=== PATIENT | female | born 1995 | race Caucasian/White ===

== ENCOUNTER 2019-10-16 09:09 | Outpatient (REF) | payer BC, SELFPAY ==
--- NOTE | 2019-10-16 08:50 | PAPFT_PTH ---
PATIENT: Anne-Marie Hollins LOC: [facility] U#:[id number] AGE/SX: 23/F ROOM: RE10/16/[address]: Arielle Mariee APRN : 1995 BED: DIS: 10/16/2019 SPEC #: [id number] RECD: 10/16/19 12:40 STATUS: ACE REMario #: [id number] JAZMYN: 10/16/19 08:[address]: Arielle Mariee DEPT: [facility] Cytology RECD BY: Ann-Marie Romano Tissues: 1 - CX/ENDOCX FOR PAP SMEARS Procedures: PAP THIN PREP/UVM Screening Comments: [id number]
== END 2019-10-16 09:29 ==
LOC: LBN 09:09
DX: Z12.4 Encounter for screening for malignant neoplasm of cervix (principal)
CPT/HCPCS: 88142

== ENCOUNTER 2021-01-06 11:50 | Outpatient (REF) | payer BC, SELFPAY ==
--- NOTE | 2021-01-06 08:05 | PAPFT_PTH ---
PATIENT: Anne-Marie Hollins LOC: [facility] U#:[id number] AGE/SX: 25/F ROOM: RE01/06/[address]: Arielle Mariee APRN : 1995 BED: DIS: 01/06/2021 SPEC #: [id number] RECD: 01/06/21 12:59 STATUS: ACE REQ #: [id number] JAZMYN: 01/06/21 08:[address]: Arielle Mariee DEPT: [facility] Cytology RECD BY: Yovana Engel Tissues: 1 - CX/ENDOCX FOR PAP SMEARS Procedures: PAP THIN PREP/UVM Screening Comments: [id number]
== END 2021-01-06 11:51 | disposition home or self-care (01) ==
LOC: LBN 11:50
DX: Z12.4 Encounter for screening for malignant neoplasm of cervix (principal)
CPT/HCPCS: 88142

== ENCOUNTER 2021-03-10 04:20 | Outpatient (CLI) | payer BC, SELFPAY ==
[2021-03-10 09:15] LABS: ALT 32 U/L (14-59); AST 26 U/L (15-37); Albumin 4.1 g/dL (3.4-5.0); Alkaline Phosphatase 43 U/L (46-116); Anion Gap 9.8 mmol/L (3-11); BUN 19 mg/dL (7-18); Bilirubin, Total 0.3 mg/dL (0.2-1.0); CO2 26.2 mmol/L (21.0-32.0); CREATININE 0.8 mg/dL (0.55-1.02); Calcium 8.7 mg/dL (8.5-10.1); Chloride 103 mmol/L (98-107); Glucose 93 mg/dL (74-106); Potassium 4.2 mmol/L (3.5-5.1); Sodium 139 mmol/L (136-145); TSH (W/Ref FT4) 1.18 uIU/mL (0.36-3.74); Total Protein 6.6 g/dL (6.4-8.2)
== END 2021-03-10 04:21 | disposition home or self-care (01) ==
LOC: LBO 04:21
DX: F32.A Depression, unspecified (principal); F41.9 Anxiety disorder, unspecified; R53.83 Other fatigue; Z00.00 Encounter for general adult medical examination without abnormal findings; G47.00 Insomnia, unspecified
CPT/HCPCS: 36415; 80053; 82306; 84443

== ENCOUNTER 2022-12-15 18:24 | Outpatient (REF) | payer BC, SELFPAY | END 2022-12-15 18:25 | disposition home or self-care (01) | LOC: LBN 18:24 | PROVIDERS: PCP Nurse Practitioner Family; Visit Provider Nurse Practitioner Family | DX: N39.0 Urinary tract infection, site not specified (principal) | CPT/HCPCS: 87086 ==

== ENCOUNTER 2022-12-24 12:58 | Emergency (ER) | payer BC, SELFPAY ==
[2022-12-24 13:04] VITALS: BP 115/69; PULSE 98; RESP 16; TEMP 36.9; O2SAT 100
--- OUTSIDE RECORDS SUMMARY | 2022-12-24 13:06 | XMS_ITS | Continuity of Care Document ---
Author Name Unknown Organization [facility] Ambulatory [facility]ics Address [address] [place] [address] Care Team Providers Care Bottom Liner Name Role Phone CECILIO ROSSI APRN Primary Care Physician [phone] [facility]counter [facility] [id number] Date(s): 10/16/22 - 10/16/22 [facility] Ambulatory Clinics [address] [place], [place] [address] Patient Care team information Care Team Personnel Name: CECILIO ROSSI APRN Position: No Access Member Role: Primary Care Physician Address: Address: [address] [place] [address] [place] [address]
--- OUTSIDE RECORDS SUMMARY | 2022-12-24 13:06 | XMS_ITS | Continuity of Care Document ---
Author Name Unknown Organization [facility] Ambulatory Clinics Address [address] [place] [address] Care Team Providers Care Holter Scanning Technician Name Role Phone LONA ROSSI APRN Primary Care Physician Encounter [facility] NBR [id number] Date(s): 12/03/22 - 12/03/22 [facility] Ambulatory Clinics [address] [place] [address]- [place] Encounter Diagnosis Globus sensation(Discharge Diagnosis) - 12/03/22 Vomiting(Discharge Diagnosis) - 12/03/22 Dry heaves(Discharge Diagnosis) - 12/03/22 Discharge Disposition: Home or Self Care Attending Physician: Yenny Damon APRN Referring Physician: LONA ROSSI APRN Allergies, Adverse Reactions, Alerts Substance Reaction Severity Status diphtheria toxoid Mild Active pertussis, acellular Mild Active Assessment and Plan Future Appointments Medications clindamycin 1% topical lotion 1 bernadette, Topical, every night at bedtime, # 60 mL, 0 Refill(s) Start Date: 11/14/22 Status: Ordered Drysol 20% topical solution 1 bernadette, Topical, every day at bedtime, PRN as needed for excessive sweating, # 35 mL, 0 Refill(s) Start Date: 11/14/22 Status: Ordered fluticasone 50 mcg/inh nasal spray 2 sprays, Nasal, every morning, 0 Refill(s) Start Date: 11/14/22 Status: Ordered lamoTRIgine 100 mg oral tablet TAKE ONE AND ONE-HALF TABLETS BY MOUTH EVERY DAY Start Date: 11/14/22 Status: Ordered lamoTRIgine 150 mg oral tablet TAKE 1 TABLET BY MOUTH DAILY Start Date: 11/14/22 Status: Ordered omeprazole 40 mg oral delayed release capsule 40 mg = 1 cap, Oral, Daily, # 90 cap, 0 Refill(s) Start Date: 11/14/22 Status: Ordered SUMAtriptan 100 mg oral tablet 100 mg = 1 tab, Oral, Daily, PRN as needed for migraine headache, may repeat dose after 2 hours up to a maximum of 200 mg in 24 hours, # 18 tab, 0 Refill(s) Start Date: 11/14/22 Status: Ordered tretinoin 0.05% topical cream 1 bernadette, Topical, every day at bedtime, # 20 g, 0 Refill(s) Start Date: 11/14/22 Status: Ordered Problem List Condition Confirmation Course Effective Dates Status Health St atus Informant Acne Confirmed Active ADD - Attention deficit disorder Confirmed Active Allergic rhinitis Confirmed Active Anger Confirmed Active Anxiety depression Confirmed Active Bipolar 2 disorder Confirmed Active Chronic congestion Confirmed Active Chronic cough Confirmed Active Closed fracture metatarsal Confirmed Active Dry heaves Confirmed Active Fatigue Confirmed Active Frequency of urination Confirmed Active Globus sensation Confirmed Active H/O: migraine Confirmed Active Migraine Confirmed Active Nocturia Confirmed Active PND - Postnasal drip Confirmed Active Poor sleep Confirmed Active Social anxiety disorder Confirmed Active Vomiting Confirmed Active Vital Signs Most recent to oldest [Reference Range]: 1 Temperature Temporal Artery [36-38 Deg C ] 36.8 Deg C (12/03/22 3:26 PM) Peripheral Pulse Rate [60-100 bpm] 87 bp m (12/03/22 3:26 PM) Blood Pressure [90-140/60-90 mmHg] 106/5 8mmHg (12/03/22 3:26 PM) Weight 54.70 kg (12/03/22 3:26 PM) Weight Measured (lbs) 120.593 lb (12/03/22 3:26 PM) [place] Body Weight Calculated 52.382 kg (12/03/22 3:26 PM) Height 160 cm (12/03/22 3:26 PM) Height/Length Measured (inches) 62.99 in ch (12/03/22 3:26 PM) BSA Measured 1.56 m2 (12/03/22 3:26 PM) Body Mass Index 21.37 kg/m2 (12/03/22 3:26 PM) Social History Social History Type Response Tobacco Former tobacco user Tobacco Use:. Sex Physician Outpatient Note * Yenny Damon APRN: PERFORM Event Display: Office Clinic Note Physician Authored Date: [id number] DOMITILA PINEDA :1995 Age:27 years Sex:Female Visit Date:12/03/2022 Primary Care Physician: LONA ROSSI APRN Chief Complaint Vomiting and globus sensation History of Present Illness Patient is a 27-year-old female here today at the request of Casie Chakraborty APRN??for vomiting and globus sensation.?? Her primary care provider??is Lona Robert APRN. This is an initial consult. ?? Patient has seen??ENT??and had a flexible sigmoidoscopy that was normal. ??She is been treated for postnasal drip and allergic rhinitis.?? For years patient states she has had the symptoms but they have worsened in the past 6 months and has sought treatment. ??Complains??of dry heaving??to the point of vomiting every morning.?? She has been encouraged to take PPI.?? In the last few days started omeprazole 40 mg every morning.?? Her symptoms occur upon awakening??or when exercise. ??She states she has gained weight recently and she has not been able to exercise due to this discomfort.?? She has a globus sensation.?? She denies nausea, or abdominal pain. ??Denies any constipation, diarrhea,??melena or hematochezia.?? States her appetite??varies. ??Denies any pyrosis or dyspepsia. ??Denies dysphagia. ?? Patient's medical history includes bipolar??disorder type II??and social anxiety disorder. ?? She rarely uses??NSAIDs. ?? EGD:??Denies. ?? Colonoscopy:??Denies. ?? Substance use:??Admits to marijuana use daily for the past 11 years.?? She has??not abstain for 2 to 3 months.?? She feels it helps her vomiting.?? Symptoms did not improve with a hot shower??other than the relief of nasal congestion. ?? Denies any family history of any gastrointestinal cancers or inflammatory bowel disease. Review of Systems Pertinent positives and negatives are discussed in HPI. Physical Exam Vitals & Measurements T:??36.8?C ??(Temporal Artery)?? HR:??87??(Peripheral)?? BP:??106/58?? SpO2:??99%?? HT:??160??cm?? WT:??54.70??kg?? BMI:??21.37?? BSA:??1.56?? General: Well-nourished well-developed??female??in no acute distress. HEENT: Head is normocephalic, trachea midline, and no cervical lymphadenopathy. Respiratory: Respirations are even and unlabored. ??Lungs are clear to auscultation. Cardiovascular: Regular rate and rhythm with S1 and S2. Abdomen: Positive bowel sounds x4 quadrants, no masses, no guarding, no tenderness. ??No hepatosplenomegaly. ??Abdomen is soft. Skin: Warm, dry, and pink. Neurological: Alert and oriented x3, speech is clear and gait is steady. Psychological: Pleasant, calm and cooperative. Assessment/Plan 1.??Globus sensation??F45.8 ENT work-up has been unremarkable including flexible sigmoidoscopy.?? Patient recently started omeprazole 40 mg every morning.?? Suggest she take it??40 mg 30 minutes before evening meal.?? Follow-upin 4 weeks. ??If continues to have??same symptoms that recommend she??consider EGD for further evaluation and treatment. ??She is agreeable with this??plan of care. 2.??Vomiting??R11.10,??Dry heaves??R11.10 As above. Orders: Follow-up Appointment Request [facility], *Est. 12/31/22 +/- 4 days, Future Order, f/u v, globus sesnation., In Approximately, [facility] Gastroenterology Voice recognition software utilized which may result in minor patrol driver error. Problem List/Past Medical History Ongoing Acne ADD - Attention deficit disorder Allergic rhinitis Anger Anxiety depression Bipolar 2 disorder Chronic congestion Chronic cough Closed fracture metatarsal Dry heaves Fatigue Frequency of urination Globus sensation H/O: migraine Migraine Nocturia PND - Postnasal drip Poor sleep Social anxiety disorder Vomiting Historical No qualifying data Medications clindamycin 1% topical lotion, 1 bernadette, Topical, every night at bedtime Drysol 20% topical solution, 1 bernadette, Topical, every night at bedtime, PRN fluticasone 50 mcg/inh nasal spray, 2 sprays, Nasal, every morning lamoTRIgine 100 mg oral tablet lamoTRIgine 150 mg oral tablet omeprazole 40 mg oral delayed release capsule, 40 mg= 1 cap, Oral, Daily SUMAtriptan 100 mg oral tablet, 100 mg= 1 tab, Oral, Daily, PRN tretinoin 0.05% topical cream, 1 bernadette, Topical, every night at bedtime Allergies diphtheria toxoid pertussis, acellular Social History Alcohol Past Electronic Cigarette/Vaping Electronic Cigarette Use: Never. Substance Use Current, Marijuana Tobacco Former tobacco user Tobacco Use:. Family History Cancer: Grandfather (M) and Grandmother (P). Diabetes mellitus: Grandmother (M). Hypertension: Mother and Grandfather (P). Stroke: Grandfather (M) and Grandmother (M). Family Member(s): ?? GPARENT, at age: Unknown. Cause of : Family Member(s): ?? GPARENT, at age: Unknown. Cause of : Family Member(s): ?? GPARENT, at age: Unknown. Cause of : Family Member(s): ?? GPARENT, at age: Unknown. Cause of : Electronically Signed on 12/03/22 04:11 PM Yenny Damon APRN Patient Care team information Care Team Personnel Name: FLO LONA ZHAO Position: No Access Member Role: Primary Care Physician Address: Address: [address] [place] [address] [place] [address]
--- NOTE | 2022-12-24 13:15 | DI.US_ITS ---
Exam(s) US OB 1ST TRIMESTER EXAM: US OB 1ST TRIMESTER CLINICAL HISTORY: ABD pain, vaginal bleeding, r/o ectopic. COMPARISON: No exams were available for comparison TECHNIQUE: Transabdominal Transvaginal first trimester obstetrical ultrasound performed. FINDINGS: Sonographic images demonstrate a single intrauterine gestation. A yolk sac and pole are seen. Sonographically assessed gestational age based upon crown-rump length of 1.8 cm is: 8 weeks 1 day Estimated date of delivery based on this ultrasound is: 04 August 2023 Estimated date of delivery based upon LMP: Unknown. heart rate motion is Dopplered at: 180 bpm. No free fluid identified. Both ovaries appear sonographically normal. Pelvic Measurments Uterus: 8.8 x 4.8 x 6.1 cm Rt Ovary: 3.0 x 1.6 x 2.2 cm Lt Ovary: 3.3 x 2.1 x 2.2 cm IMPRESSION: Single live intrauterine gestation measuring 8 weeks 1 day. No evidence of ectopic . DATA REPOSITORY:
--- NOTE | 2022-12-24 13:46 | W.ED.GENAD ---
Discharge Plan Disposition Patient Disposition: Home Condition: Stable Discharge Details Clinical Impression: Vaginal bleeding in patient at less than 20 weeks gestation Primary Care Provider: Lona Leslie ED Provider: Morris Coleman Home Meds and New Rx's Prescriptions: Continued ibuprofen 800 mg tablet 800 mg PO Q8H PRN (Reason: pain) Qty: 90 3RF cholecalciferol (vitamin D3) 50 mcg (2,000 unit) tablet 50 mcg PO DAILY Qty: 90 0RF fluticasone propionate [Flonase Allergy Relief] 50 mcg/actuation spray,suspension 2 spray intranasal DAILY 30 Days Qty: 16 12RF Rx Instructions: administer into each nostril aluminum chloride 20 % solution 1 applic topical QWEEK PRN (Reason: excessive sweating) 90 Days Qty: 35 2RF sumatriptan succinate 100 mg tablet See Rx Instructions PO .COMPLEX Qty: 14 3RF Rx Instructions: take 1 tab at onset of headache; if no relief, may repeat 1 tab after at least 2 hrs; max = 2 tabs/24 hrs PO omeprazole 40 mg capsule,delayed release(DR/EC) 40 mg PO DAILY 30 Days Qty: 30 1RF lamotrigine 200 mg tablet 200 mg PO DAILY Qty: 90 0RF Discharge Instructions Instructions: Threatened Miscarriage (ED), (ED) Additional Instructions: You were seen in the emergency department for your vaginal bleeding in . It appears your much further along than the 4 weeks you thought you are for. Your urine shows no signs of infection, your hCG hormone is 89,000 indicating greater than 4 weeks , your ultrasound shows an intrauterine and not an ectopic . We discussed at length the possibility of a threatened miscarriage, please return to the ED for any further bleeding or severe abdominal pain especially with fever, nausea, vomiting or other systemic symptoms. The OB service here at the hospital we will follow-up with you for an outpatient appointment. Your ultrasound shows that your fetus is likely 8 weeks and 1 day old. His heart rate was 180 bpm. Please bring up at your first OB appointment your regular use of lamotrigine as this may need to be adjusted for dosing during . Please inquire with the OB about possible use of sumatriptan as well as how often you are taking ibuprofen. Referrals: [facility] [Provider Group] [facility] [Provider Group] Discharge Data Discharge Date/Time-TO BE ENTERED AT DEPARTURE: 12/24/22 15:42 Medical Decision Making Assessment: Patient is a 27-year-old female who believes she is 4 weeks along with her first presenting with acute abdominal pain and vaginal bleeding. She states that she had significant abdominal pain and severe bleeding on 17th and 18th last week and scant bleeding today. Physical exam findings show that her cervical os is scantly open with a very scant trickle of blood leaking out with no signs of large clots or products of conception coming from the cervix. Her UA shows no, she is O+ her blood type and does not need RhoGAM, her quant is 89,000 and there appears to be an intrauterine viable in her uterus that appears much larger than 4 weeks gestational age. I consulted with OB services and they will arrange to see the patient in the very near future, the patient and patient's were comfortable with this disposition, advised that they return to the emergency department for any significant increase in bleeding or abdominal pain or any other emergent concerns. I did sexual assault counselor them at length and try to provide reassurance about possibility of threatened miscarriage. Medical Records Medical records reviewed: Yes I reviewed the patient's medical records. Imaging Data Radiologic Study: Radiologist's impression: EXAM: US OB 1ST TRIMESTER CLINICAL HISTORY: ABD pain, vaginal bleeding, r/o ectopic. COMPARISON: No exams were available for comparison TECHNIQUE: Transabdominal Transvaginal first trimester obstetrical ultrasound performed. FINDINGS: Sonographic images demonstrate a single intrauterine gestation. A yolk sac and pole are seen. Sonographically assessed gestational age based upon crown-rump length of 1.8 cm is: 8 weeks 1 day Estimated date of delivery based on this ultrasound is: 04 August 2023 Estimated date of delivery based upon LMP: Unknown. heart rate motion is Dopplered at: 180 bpm. No free fluid identified. Both ovaries appear sonographically normal. Pelvic Measurments Uterus: 8.8 x 4.8 x 6.1 cm Rt Ovary: 3.0 x 1.6 x 2.2 cm Lt Ovary: 3.3 x 2.1 x 2.2 cm IMPRESSION: Single live intrauterine gestation measuring 8 weeks 1 day. No evidence of ectopic . DATA REPOSITORY: Ordered By: Morris Coleman CC: Dictated By: Deedee Funez M.D. 12/24/221524 <Electronically signed by Deedee Funez M.D. in OV> 12/24/221524 Transcribed By: Deedee Funez 12/24/221524 Lab Data Labs: Laboratory Tests Range/Units 12/24/22 12/24/22 13:35 13:49 Beta HCG, Quant (1-3) mIU/mL 98296 H Urine Color (Yellow) Yellow Urine Clarity (Clear) Clear Urine pH (5-8) 6.0 Ur Specific [place] (1.005-1.025) >= 1.030 H Urine Protein (Negative) mg/dL Negative Urine Ketones (Negative) mg/dL Negative Urine Blood (Negative) Moderate H Urine Nitrite (Negative) Negative Urine Bilirubin (Negative) Negative Urine Urobilinogen (Up to 0.2) mg/dL 0.2 Ur Leukocyte Esterase (Negative) Negative Urine RBC (0-2) HPF 3-5 H Urine WBC (0-5) HPF Negative Ur Epithelial Cells (Negative) HPF Few Urine Crystals (Negative) HPF Negative Urine Bacteria (Negative) HPF Negative Urine Casts (Negative) LPF Negative Urine Mucus (Negative) Moderate Ur Culture Indicated? No Urine Glucose (Negative) mg/dL Negative Patient ABO/Rh O Positive HPI General Date/Time Provider Initiated Documentation: 12/24/22 13:00. HPI Narrative: 27-year-old female, G1PAL0, presents with likely 4-week gestational age with for confirmed positive at-home test. She reported some heavy bleeding last week on the and with about 2 hours of abdominal pain each day of a severe degree. She notices scant bleeding today with some mild right lower suprapubic abdominal pain. She denies nausea/vomiting, denies fevers, denies chest pain, denies stool changes, denies dysuria or lack of urinary output or flank pain. Her and her have been trying to become and her last menstrual period was November 19. She is monogamous and denies possibility of sexually transmitted diseases or new sex partners. Denies foul odor or discharge. Related Data Home Medications Medication Instructions Recorded Confirmed cholecalciferol (vitamin D3) 50 50 mcg PO DAILY #90 tabs 07/01/21 12/22/22 mcg (2,000 unit) tablet ibuprofen 800 mg tablet 800 mg PO Q8H PRN pain #90 tabs 07/01/21 12/22/22 aluminum chloride 20 % topical 1 applic topical QWEEK PRN 04/06/22 12/22/22 solution excessive sweating 90 days #35 mL sumatriptan succinate 100 mg tablet See Rx Instructions PO .COMPLEX 04/06/22 12/22/22 #14 tabs fluticasone propionate 50 2 spray intranasal DAILY 30 days 05/14/22 12/22/22 mcg/actuation nasal #16 grams spray,suspension (Flonase Allergy Relief) omeprazole 40 mg capsule,delayed 40 mg PO DAILY 30 days #30 caps 10/19/22 12/22/22 release lamotrigine 200 mg tablet 200 mg PO DAILY at bedtime #90 11/30/22 12/22/22 tabs Previous Rx's Medication Instructions Recorded cholecalciferol (vitamin D3) 50 50 mcg PO DAILY #90 tabs 07/01/21 mcg (2,000 unit) tablet ibuprofen 800 mg tablet 800 mg PO Q8H PRN pain #90 tabs 07/01/21 aluminum chloride 20 % topical 1 applic topical QWEEK PRN 04/06/22 solution excessive sweating 90 days #35 mL sumatriptan succinate 100 mg tablet See Rx Instructions PO .COMPLEX 04/06/22 #14 tabs fluticasone propionate 50 2 spray intranasal DAILY 30 days 05/14/22 mcg/actuation nasal #16 grams spray,suspension (Flonase Allergy Relief) omeprazole 40 mg capsule,delayed 40 mg PO DAILY 30 days #30 caps 10/19/22 release lamotrigine 200 mg tablet 200 mg PO DAILY at bedtime #90 11/30/22 tabs Allergies Allergy/AdvReac Type Severity Reaction Status Date / Time diphtheria,pertussis Allergy Mild Other (See Verified 12/22/22 18:00 (acellular),te Comment) [From Boostrix Tdap] Pertussis Vaccines Allergy Mild Other (See Verified 12/22/22 18:00 Comment) General Stated Complaint: 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 ALINA: 3 Review of Systems All systems reviewed & are unremarkable except as noted in HPI and below PFSH All Active Problems (Updated 12/24/22 @ 15:22 by ELSA Guerra) Vaginal bleeding in patient at less than 20 weeks gestation (Acute) Vomiting (Acute) Interstitial cystitis (Acute) Dry heaves (Acute) Globus sensation (Acute) Allergic rhinitis (Acute) Excessive anger (Acute) Bipolar 2 disorder (Acute) Postnasal drip (Acute) Chronic congestion of paranasal sinus (Acute) Acne (Acute) Migraine headache without aura (Acute) Social anxiety disorder (Chronic) Migraines (Chronic) Fatigue due to depression (Chronic) Anxiety (Chronic) Poor sleep (Chronic) Secondary to nocturia Elavil 10mg helpful in the past Nocturia (Chronic) 5+ times per night and urge in between Evaluated at [facility] 06/18/2018 Medical History Routine gynecological examination Cough History of chronic cough Spirometry normal 03/08/14, Fracture of fifth metacarpal bone of right hand 03/25/18 H/O attention deficit hyperactivity disorder Treated with Adderall years ago H/O urinary frequency Without infection Family History Mother Hypertension Father No problems noted. Brother No problems noted. Maternal Grandmother , 68 Diabetes Stroke Maternal Grandfather , 82 Cancer Stroke Paternal Grandmother , 80's Cancer Paternal Grandfather , 80 Hypertension Social History Smoking/Tobacco Use Status: Former Tobacco Use Quit Date: 03/01/14 Quit status: has quit before Second Hand Exposure: Yes Smoking risk assessment performed?: Yes Alcohol Intake: former Drug use: Daily Substance use type: marijuana Details: stopped smoking marijuana when patient had positive test. Aden RN 12/24/22 Caregiver/Support person: No Household members: significant other Housing: apartment Communication Needs: None Do you need help understanding health information?: Never Pets and animals: Yes Pets and animals: cat(s) and dog(s) Sexually active: Yes Do you think of yourself as: straight/heterosexual Current gender identity: female What is your relationship status?: living with partner How often do you talk on the phone with friends or family?: three or more times per week How often do you get together with friends or relatives?: never How often do you attend jew or mandaeism services?: decline to answer Do you belong to any clubs or organized social groups?: no Panel score (0-1 are the most socially isolated patients): 2 What type of physical activity do you participate in: walking, weight lifting, running and additional Details: cardio Duration: > 90 minutes/day Frequency: 5-6 times per week Sarah/Jehovah'S Witness: Agnostic Special sarah needs: No Seatbelt use: always Helmet use: No Drive intox or ride w/intox service parts driver: No Do you feel safe at home: Yes Do you feel safe in your relationship?: Yes Exam Const General: cooperative, healthy appearing, comfortable and no acute distress HENMT Head: normal to inspection, normocephalic and atraumatic Resp Effort & Inspection: normal respiratory effort, able to speak in complete sentences and normal respiratory pattern Cardio Rate: regular rate Pulses: radial pulses present GI Inspection: non-distended and no obesity Palpation: soft and no guarding General: bladder normal to palpation and No CVA tenderness Speculum Exam - Vagina: normal appearance of the vagina, not erythematous, no foreign bodies and No tissue present in vagina Speculum Exam - Cervix: cervical os open and abnormal cervical discharge (scant bloody drainage from partially open cervical os) Bimanual Exam- Vagina & Uterus: bladder normal to palpation OB/External & Speculum: no foreign bodies, no tissue noted in vagina and cervical os open Course Vital Signs Vital signs: Vital Signs Temperature 36.9 C 12/24/22 13:04 Pulse 98 H 12/24/22 13:04 Respiratory Rate 16 12/24/22 13:04 Blood Pressure 115/69 12/24/22 13:04 Pulse Oximetry 100 12/24/22 13:04 Temperature 36.9 C 12/24/22 13:04 Pulse 98 H 12/24/22 13:04 Respiratory Rate 16 12/24/22 13:04 Respiratory Effort Normal, Non-Labored 12/24/22 13:08 Blood Pressure 115/69 12/24/22 13:04 Pulse Oximetry 100 12/24/22 13:04
[2022-12-24 13:49] LABS: Bilirubin Negative (Negative); Blood Moderate (Negative); Clarity Clear (Clear); Glucose Negative (Negative); Ketones Negative (Negative); Leukocyte Esterase Negative (Negative); Nitrite Negative (Negative); Specific Gravity >= 1.030 (1.005-1.025); Urobilinogen 0.2 mg/dL (Up to 0.2)
[2022-12-24 13:56] LABS: Bacteria Negative HPF (Negative); C & S Indicated? No; Casts Negative LPF (Negative); Crystals Negative HPF (Negative); Epithelial Cells Few HPF (Negative); Mucus Moderate (Negative); WBC Negative HPF (0-5)
[2022-12-24 14:34] LABS: HCG Quant, Pregnancy 89483 mIU/mL (1-3)
== END 2022-12-24 15:42 | disposition home or self-care (01) ==
LOC: ER 15:22 → RED 15:43 → ER 15:43
PROVIDERS: Emergency Provider Physician Assistant; PCP Nurse Practitioner Family
DX: O46.91 Antepartum hemorrhage, unspecified, first trimester (principal); Z87.891 Personal history of nicotine dependence; Z3A.08 8 weeks gestation of pregnancy
CPT/HCPCS: 86900; 86901; 96360; 99284; 76801; 81003; 81015; 84702; 99283

== ENCOUNTER 2023-01-13 03:02 | Outpatient (CLI) | payer BC, SELFPAY ==
[2023-01-13 13:07] LABS: Panorama Kit Sent via Fed Ex
[2023-01-13 13:19] LABS: Abs Immature Grans 0.06 10^3/uL (0.0-0.06); Absolute Basophil Count 0.06 10^3/uL (0.0-0.2); Absolute Eosinophil Count 0.14 10^3/uL (0.0-0.7); Absolute Lymphocyte Count 2.01 10^3/uL (1.2-3.4); Absolute Monocyte Count 0.59 10^3/uL (0.1-0.8); Basophils % 0.5; Eosinophils % 1.2; HCT 39.2 % (36.0-46.0); HGB 13.6 g/dL (11.2-15.7); Immature Grans % 0.5; Lymphocytes % 17.5; MCH 32.7 pg (27.0-33.0); MCHC 34.7 % (32.0-36.0); MCV 94 fL (80-95); MPV 8.9 fL (8.0-11.0); Monocytes % 5.1; Neutrophils % 75.2; Platelet Count 304 10^3/uL (130-400); RBC 4.16 10^6/uL (3.93-5.22); RDW-SD 45.1 fL; WBC 11.51 10^3/uL (4.4-10.8)
[2023-01-13 13:22] LABS: Absolute Neutrophil Count 8.66 10^3/uL (1.2-6.7)
[2023-01-14 10:20] LABS: Hepatitis B Surface Ag Negative (Negative)
[2023-01-14 10:30] LABS: Varicella IgG Antibody Positive (See Note)
[2023-01-14 10:38] LABS: Rubella IgG Ab (UVM) Negative (See Note)
[2023-01-14 10:59] LABS: HIV-1/2 Ag & Ab Screen Negative (Negative)
[2023-01-14 11:11] LABS: Hepatitis C Ab w Rflx HCV PCR Negative (Negative)
[2023-01-15 09:36] LABS: Toxoplasma Ab, IgG Negative (Negative); Toxoplasma Ab, IgM Negative (Negative); Toxoplasma IgG Value <3 IU/mL
[2023-01-17 15:41] LABS: Syphilis IgG w/Reflex Nonreactive (Nonreactive)
[2023-01-17 17:16] LABS: Specimen WB Whole Blood
[2023-01-27 14:08] LABS: Result Summary NEGATIVE; Specimen WB Whole Blood
== END 2023-01-13 03:03 | disposition home or self-care (01) ==
LOC: LBO 03:02
PROVIDERS: PCP Nurse Practitioner Family; Visit Provider Advanced Practice Midwife
DX: Z34.91 Encounter for supervision of normal pregnancy, unspecified, first trimester
CPT/HCPCS: 36415; 81220; 81222; 81329; 86787; 86803; 86850; 86900; 86901; 87340; 87389; 85025; 86762; 86777; 86778; 86780

== ENCOUNTER 2023-01-13 12:50 | Outpatient (REF) | payer BC, SELFPAY ==
[2023-01-13 15:42] LABS: *AMPHETAMINES SCREEN URINE Negative (Negative); *BARBITURATES SCREEN URINE Negative (Negative); *BENZODIAZEPINES SCREEN URINE Negative (Negative); Cannabinoids THC Negative (Negative); Cocaine Screen,Urine Negative (Negative); METHADONE URINE SCREEN Negative (Negative); OPIATES URINE SCREEN Negative (Negative); Tricyclic Antidepressants Negative (Negative)
[2023-01-14 14:51] LABS: Chlamydia Result Negative (Negative); GC Result Negative (Negative)
[2023-01-18 14:25] LABS: Buprenorphine Negative ng/mL (Cutoff: 5.0); Norbuprenorphine Negative ng/mL (Cutoff: 2.5)
== END 2023-01-13 12:51 | disposition home or self-care (01) ==
LOC: LBN 12:50
PROVIDERS: PCP Nurse Practitioner Family; Visit Provider Advanced Practice Midwife
DX: Z34.91 Encounter for supervision of normal pregnancy, unspecified, first trimester
CPT/HCPCS: 80307; 80348; 87491; 87591; 87086

== ENCOUNTER 2023-03-10 02:56 | Outpatient (CLI) | payer BC, SELFPAY ==
[2023-03-15 14:08] LABS: AFP 60.2 ng/mL; Calculated age at EDD 29 years; Cigarette smoking status non-Smoker; GA used in risk estimate Scan estimate; IVF Pregnancy No; Initial or repeat testing Initial testing; Insulin dependent diabetes No; Maternal Weight 137 lbs; Number of Fetuses 1; Prev Pregnancy w/NTD No; RECOMMENDED FOLLOW UP None.; Results Summary Normal risk
== END 2023-03-10 02:57 | disposition home or self-care (01) ==
LOC: LBO 02:56
PROVIDERS: PCP Nurse Practitioner Family; Visit Provider Advanced Practice Midwife
DX: Z34.92 Encounter for supervision of normal pregnancy, unspecified, second trimester (principal)
CPT/HCPCS: 36415; 82105

== ENCOUNTER 2023-03-19 16:07 | Outpatient (REF) | payer BC, SELFPAY | END 2023-03-19 16:08 | disposition home or self-care (01) | LOC: LBN 16:07 | PROVIDERS: PCP Nurse Practitioner Family; Visit Provider Advanced Practice Midwife | DX: O26.892 Other specified pregnancy related conditions, second trimester (principal); R10.2 Pelvic and perineal pain; N89.8 Other specified noninflammatory disorders of vagina; Z3A.20 20 weeks gestation of pregnancy | CPT/HCPCS: 87086; 87480; 87510; 87660 ==

== ENCOUNTER 2023-05-03 05:00 | Outpatient (CLI) | payer BC, SELFPAY ==
[2023-05-03 09:52] LABS: HCT 37.9 % (36.0-46.0); HGB 12.5 g/dL (11.2-15.7); MCV 100 fL (80-95); MPV 8.8 fL (8.0-11.0); Platelet Count 288 10^3/uL (130-400); RBC 3.79 10^6/uL (3.93-5.22); RDW 12.3 % (11.7-14.6); RDW-SD 45.4 fL; WBC 11.03 10^3/uL (4.4-10.8)
[2023-05-03 10:03] LABS: Glucose,1 Hr (Glucola) 102 mg/dL (80-140)
== END 2023-05-03 05:01 | disposition home or self-care (01) ==
LOC: LBO 05:00
PROVIDERS: PCP Nurse Practitioner Family; Visit Provider Advanced Practice Midwife
DX: Z34.92 Encounter for supervision of normal pregnancy, unspecified, second trimester (principal); Z3A.26 26 weeks gestation of pregnancy
CPT/HCPCS: 36415; 82950; 85027

== ENCOUNTER → 2023-06-02 03:42 | Outpatient (CLI) | payer BC, SELFPAY ==
--- NOTE | 2023-06-02 08:00 | DI.US_ITS ---
Exam(s) US OB PIYUSH WEIGHT EXAM: US OB PIYUSH WEIGHT CLINICAL HISTORY: placental cyst,)43.192. TECHNIQUE: Transabdominal obstetrical ultrasound performed. COMPARISON: US US OB 2-3 TRIMESTER from 03/10/2023 FINDINGS:: Number of fetuses: One. position: Vertex. Placental location: Posterior. Areas of subchorionic fibrin deposition/subchorionic cysts have decre ased in size. No evidence of previa. BIOMETRIC DATA: BPD: 81mm = 32+5 weeks HC: 297mm = 32+ 6 weeks AC: 281mm = 32+1 weeks FL: 60 mm = 31+3 weeks EFW: 1888 Gms = 73% Composite Age: 28 2+2 weeks KRISTINA: [birth year]23 Heart Rate: 135BPM Amniotic fluid index: 11.7 cm. Amount of fluid is visually within normal limits. IMPRESSION: size and weight are within the expected range. DATA REPOSITORY:
== END ==
PROVIDERS: PCP Nurse Practitioner Family; Visit Provider Advanced Practice Midwife
DX: O43.192 Other malformation of placenta, second trimester (principal)
CPT/HCPCS: 76816

== ENCOUNTER → 2023-07-05 04:21 | Outpatient (CLI) | payer BC, SELFPAY ==
--- NOTE | 2023-07-05 07:00 | DI.US_ITS ---
Exam(s) US OB PIYUSH WEIGHT EXAM: US OB PIYUSH WEIGHT CLINICAL HISTORY: PIYUSH,WT, placental cysts,Z34.90. TECHNIQUE: Transabdominal obstetrical ultrasound performed. COMPARISON: US US OB PIYUSH WEIGHT from 06/02/2023 FINDINGS:: Number of fetuses: One. position: Vertex. Placental location: Fundal posterior, grade 2. previously noted cystic areas no are not demonstrated on the current exam. BIOMETRIC DATA: BPD: 89mm = 36+ 0 weeks HC: 324mm = 36+ 5 weeks AC: 320mm = 35+ 6 weeks FL: 65 mm = 35+5 weeks EFW: 2677 Gms = 42% Composite Age: 35+4 weeks KRISTINA: [birth year] 2023 Heart Rate: 157BPM Amniotic fluid index: 14.9 cm. Amount of fluid is visually within normal limits. IMPRESSION: size and weight are within the expected range. Previously noted placental cysts are no longer visualized. DATA REPOSITORY:
== END ==
PROVIDERS: PCP Nurse Practitioner Family; Visit Provider Advanced Practice Midwife
DX: Z34.93 Encounter for supervision of normal pregnancy, unspecified, third trimester (principal); Z3A.35 35 weeks gestation of pregnancy
CPT/HCPCS: 76816

== ENCOUNTER 2023-07-13 15:12 | Outpatient (REF) | payer BC, SELFPAY | END 2023-07-13 15:13 | disposition home or self-care (01) | LOC: LBN 15:12 | PROVIDERS: PCP Nurse Practitioner Family; Visit Provider Advanced Practice Midwife | DX: Z34.93 Encounter for supervision of normal pregnancy, unspecified, third trimester (principal); Z36.85 Encounter for antenatal screening for Streptococcus B; Z3A.36 36 weeks gestation of pregnancy | CPT/HCPCS: 87081 ==

== ENCOUNTER 2023-07-13 15:34 | Outpatient (CLI) | payer BC, SELFPAY ==
[2023-07-13 15:49] VITALS: BP 122/73; PULSE 90; TEMP 36.4
[2023-07-13 16:37] VITALS: BP 122/73; PULSE 90; TEMP 36.4
--- NOTE | 2023-07-13 16:39 | W.OBNST ---
Date of service: 07/13/23 Time of Service: 16:39 NST Evaluation Reason for NST Reasons for Nonstress Test: DECREASED MOVEMENT Gestational Age Gestational Age in Weeks and Days: 36 Weeks and 6Days Test and Monitor Explained Test/Monitor Explained: Test Explained, Monitor Explained and Patient Verbalized Understanding Vital Signs Blood Pressure: 122/73 Pulse: 90 Temperature: 97.5 F NST Information Date on Monitor: 07/13/23 Time on Monitor: 15:50 Date off Monitor: 07/13/23 NST Interventions: PO Hydration NST Evaluation Patient States Movement: Decreased FHR Baseline: 122 Variability: Moderate 6-25 bpm Accelerations: 15x15 Decelerations: None NST Results: Reactive Note Ultrasound Done: N/A. NST Note Note: Anne-Marie was aware of movement and is reassured by NST today. RTO as scheduled. ERICK NST Reviewed and Verified by: Cheryl Portillo
[2023-07-13 16:40] VITALS: BP 122/73; PULSE 90; TEMP 36.4
--- NOTE | 2023-07-14 14:07 | ANES_ITS ---
Date of service: 07/14/23 Time of Service: 13:55 Anesthesia Note Report Anesthesia Note: Pleasant 15 minute phone conversation with patient in regards to her desire for epidural analgesia during labor for her upcoming first child. Patient asked appropriate questions in regards to risks, benefits, and alternatives to labor. Also asked about various motor strength concerns after epidural placement. Patient was informed that all patient's respond differently and no promises could be made if she would be able to walk, reposition easily in bed, etc. Patient also aware of anesthesia coverage on week nights and weekends if the provider is involved in an emergency contractor general engineering. Patient is confident in her desire of intervention during labor and will reach out to the anestehsia department with any additional questions.
== END 2023-07-13 16:57 ==
LOC: BCD 15:36 → OBS 15:42
PROVIDERS: PCP Nurse Practitioner Family; Visit Provider Advanced Practice Midwife
DX: O36.8130 Decreased fetal movements, third trimester, not applicable or unspecified (principal); Z3A.36 36 weeks gestation of pregnancy
CPT/HCPCS: 59025

== ENCOUNTER 2023-07-19 11:23 | Inpatient (IN) | payer BC, SELFPAY ==
[2023-07-19] VITALS (95 sets, daily range): BP systolic 89–132; BP diastolic 49–86; PULSE 0–149; RESP 16; TEMP 36.4–37.3; O2SAT 96–100; BMI 32.9
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
[2023-07-19 10:43] LABS: ROM Plus Positive
[2023-07-19] MEDS: Penicillin G POT. 5,000,000 UNITS in Normal Saline 100 ML 200 UNITS IVPB (10:50)
[2023-07-19] MEDS: Normal Saline 10 ML VIAL IJ (10:50)
[2023-07-19 11:05] LABS: HCT 38.5 % (36.0-46.0); MCH 33.1 pg (27.0-33.0); MCHC 33.8 % (32.0-36.0); MCV 98 fL (80-95); MPV 9.3 fL (8.0-11.0); Platelet Count 257 10^3/uL (130-400); RBC 3.93 10^6/uL (3.93-5.22); RDW 12.9 % (11.7-14.6); RDW-SD 46.1 fL; WBC 16.89 10^3/uL (4.4-10.8)
[2023-07-19 11:30] LABS: ALT 37 U/L (14-59); AST 22 U/L (15-37); Albumin 2.6 g/dL (3.4-5.0); Alkaline Phosphatase 143 U/L (46-116); Anion Gap 10.9 mmol/L (3-11); BUN 8 mg/dL (7-18); Bilirubin, Total 0.3 mg/dL (0.2-1.0); CO2 23.1 mmol/L (21.0-32.0); CREATININE 0.6 mg/dL (0.55-1.02); Calcium 8.8 mg/dL (8.5-10.1); Chloride 104 mmol/L (98-107); Estimated GFR 124.53 (mL/min/1.73m2); Glucose 85 mg/dL (74-106); Potassium 3.8 mmol/L (3.5-5.1); Sodium 138 mmol/L (136-145); Total Protein 6.3 g/dL (6.4-8.2)
--- NOTE | 2023-07-19 12:00 | ANES.PREOP_ITS ---
General Info Date of Service Date Performed: 07/19/23 Height: 5 ft 2 in Weight: 81.647 kg Body Mass Index (BMI): 32.9 Meds Allergies and Home Medications Allergies Allergy/AdvReac Type Severity Reaction Status Date / Time diphtheria,pertussis Allergy Mild Other (See Verified 07/13/23 14:57 (acellular),te Comment) [From Boostrix Tdap] Pertussis Vaccines Allergy Mild Other (See Verified 07/13/23 14:57 Comment) Home Medication Medication Instructions Recorded sumatriptan succinate 100 mg tablet See Rx Instructions PO .COMPLEX 04/06/22 #14 tabs vitamin no.180-ferrous 1 tab PO DAILY #90 tabs 12/25/22 fumarate 27 mg-folic acid 1 mg tablet ( Plus Vitamin-Mineral) aspirin 81 mg tablet,delayed 81 mg PO DAILY #60 tabs 01/13/23 release aluminum chloride 20 % topical 1 applic topical QWEEK PRN 02/01/23 solution excessive sweating 90 days #35 mL lamotrigine 100 mg tablet 100 mg PO DAILY #90 tabs 06/03/23 lamotrigine 200 mg tablet 200 mg PO DAILY at bedtime #90 06/03/23 tabs fluticasone propionate 50 2 spray intranasal DAILY 30 days 06/07/23 mcg/actuation nasal #16 grams spray,suspension (Flonase Allergy Relief) zolpidem 5 mg tablet (Ambien) 5 mg PO QHS #20 tabs 07/13/23 Current Visit Medications: Current Medications Generic Name Dose Route Start Last Admin Trade Name Freq PRN Reason Stop Dose Admin Ringer's Solution 1,000 mls @ 125 mls/hr 07/19/23 10:15 IV INFUSION JARED Penicillin G Potassium 3,000, 50 mls @ 100 mls/hr 07/19/23 15:00 000 units/ Sodium Chloride IVPB Q4H JARED IV Miscellaneous Supplies 1 each 07/19/23 10:15 Iv Access IV DIRECTED JARED Lamotrigine 100 mg 07/20/23 08:30 Lamotrigine 100 Mg Tab PO DAILY JARED Non-Formulary Medication 200 mg 07/20/23 08:30 Lamotrigine PO DAILY JARED Sodium Chloride 0 ml 07/19/23 10:09 Normal Saline Flush 10 Ml Syr IVP PRN PRN Sodium Chloride 0 ml 07/19/23 20:00 Normal Saline Flush 10 Ml Syr IVP BID JARED Sodium Chloride 0 ml 07/19/23 10:09 07/19/23 10:50 Normal Saline 10 Ml Vial IJ 10 ml DIRECTED PRN Administration PFSH Active Problems Active Problems: Problem Status Onset Code Spontaneous onset of labor Group B streptococcal infection during O98.819, B95.1 Increased urinary frequency during O26.899, R35.0 Placental cyst affecting in second trimester O43.192 Rubella non-immune status, antepartum O09.899, Z28.39 Z34.90 Excessive anger R45.4 Bipolar 2 disorder F31.81 Social anxiety disorder F40.10 Anxiety F41.9 Medical History Medical History (Updated 07/19/23 @ 10:20 by Cheryl Jimenez CNM) Upper back pain Globus sensation Chronic congestion of paranasal sinus Acne Migraine headache without aura Nocturia 5+ times per night and urge in between [place] [facility] [place] Poor sleep Secondary to nocturia Elavil 10mg helpful in the past Pelvic cramping in antepartum period Interstitial cystitis Dry heaves Allergic rhinitis Migraines Fatigue due to depression Postnasal drip Cough History of chronic cough Spirometry normal 03/08/14, Fracture of fifth metacarpal bone of right hand 03/25/18 H/O attention deficit hyperactivity disorder Treated with Adderall years ago H/O urinary frequency Without infection Tobacco Smoking/Tobacco Use Status: Former Tobacco Use Passive smoking exposure: Yes Second hand exposure: Yes Alcohol Alcohol Intake: never Substance Use Substance use: Daily Substance use type: marijuana Details: stopped smoking marijuana when patient had positive test. Aden RN 12/24/22 Prental History History 2 1 Para 0 Hx # Term Pregnancies 0 Multiple births 0 Hx # Pregnancies 0 Ectopic pregnancies 0 AB induced 0 Hx Number of Living Children 0 AB spontaneous 0 Vital Signs and Lab Results Vital Signs Most Recent Vital Signs in EMR: Most Recent Vital Signs Temp Pulse Resp BP Pulse Ox 36.6 C 92 H 16 117/67 98 07/19/23 10:35 07/19/23 10:35 07/19/23 10:35 07/19/23 10:35 07/19/23 10:35 Lab Results 07/19/23 10:55 07/19/23 10:55 Blood Type / Crossmatch: 2 No Data to Display Complete Blood Count: 2 White Blood Count 16.89 10^3/uL (4.4-10.8) H 07/19/23 10:55 Red Blood Count 3.93 10^6/uL (3.93-5.22) 07/19/23 10:55 Hemoglobin 13.0 g/dL (11.2-15.7) 07/19/23 10:55 Hematocrit 38.5 % (36.0-46.0) 07/19/23 10:55 Platelet Count 257 10^3/uL (130-400) 07/19/23 10:55 Complete Metabolic Panel: 2 Sodium 138 mmol/L (136-145) 07/19/23 10:55 Potassium 3.8 mmol/L (3.5-5.1) 07/19/23 10:55 Chloride 104 mmol/L (98-107) 07/19/23 10:55 Carbon Dioxide 23.1 mmol/L (21.0-32.0) 07/19/23 10:55 BUN 8 mg/dL (7-18) 07/19/23 10:55 Creatinine 0.6 mg/dL (0.55-1.02) 07/19/23 10:55 Est GFR (CKD-EPI 2020) 124.53 (mL/min/1.73m2) 07/19/23 10:55 Calcium 8.8 mg/dL (8.5-10.1) 07/19/23 10:55 Albumin 2.6 g/dL (3.4-5.0) L 07/19/23 10:55 Glucose 85 mg/dL (74-106) 07/19/23 10:55 Liver Function Panel: 2 Alanine Aminotransferase (ALT/SGPT) 37 U/L (14-59) 07/19/23 10: 55 Aspartate Amino Transf (AST/SGOT) 22 U/L (15-37) 07/19/23 10:55 Coagulation Panel: 2 No Data to Display Cardiac Panel: 2 No Data to Display Arterial Blood Gas: 2 No Data to Display Venous Blood Gas: 2 No Data to Display Pancreas Panel: 2 No Data to Display Thyroid Panel: 2 No Data to Display Infectious Disease: 2 No Data to Display Blood Cultures: 2 No Data to Display Toxicology Panel: 2 No Data to Display Panel: 2 No Data to Display Anesthesia Assessment and Plan Anesthesia History Personal History: No History of Anesthesia Complications Family History: No Family History of Anesthesia Complications Exercise Tolerance Exercise Tolerance: Metabolic Equivalents>4 Cardiac & Pulmonary Exam Cardiac Exam: Normal S1/S2 Heart Sounds Pulmonary Exam: Clear Bilateral Breath Sounds Implantable Cardiac Device Does patient have a Pacemaker or an ICD?: No Airway Exam Known Difficult Airway: No Mallampati Class: 4 Mouth Opening: Narrow (< 3cm) Thyromental Distance: Less than 3 cm Neck Range of Motion: Full ROM Neck Circumference: Normal Teeth Condition: Normal Dentition ASA Classification ASA Score: ASA 2 Emergency Case?: No NPO Status NPO Status: Full Stomach Status Status: Confirmed Anesthesia Plan Resuscitation Status: Full Code Anesthesia Technique: Epidural Anesthesia Airway Planned: Natural Airway Pain Management: Epidural Monitors Used: Standard Monitors Preoperative Comments:: 27 yo female with rupture of membranes early this morning. Currently early in labor. Sig PMHx: bipolar/depression, migraines. former smoker. Discussed risks, benefits of epidural for labor analgesia. She will reach out when she is ready.
--- NOTE | 2023-07-19 12:38 | W.OBNST ---
Date of service: 07/19/23 Time of Service: 12:38 NST Evaluation Reason for NST Reasons for Nonstress Test: OTHER, SEE COMMENT Gestational Age Gestational Age in Weeks and Days: 37 Weeks and 5Days Test and Monitor Explained Test/Monitor Explained: Test Explained, Monitor Explained and Patient Verbalized Understanding Vital Signs Blood Pressure: 117/67 Pulse: 92 Temperature: 97.9 F Urine Results Urine Protein: Negative Urine Ketones: Negative Urine Glucose: Negative Urine Blood: Negative NST Information Date on Monitor: 07/19/23 Time on Monitor: 09:39 Date off Monitor: 07/19/23 Time off Monitor: 10:02 Total Time on Monitor: 23 NST Interventions: Notify Provider Contraction Frequency: 4-5 NST Evaluation Patient States Movement: Present FHR Baseline: 150 Variability: Moderate 6-25 bpm Accelerations: 15x15 Decelerations: None NST Results: Reactive Note Ultrasound Done: N/A. NST Note Note: Anne-Marie reports leaking of fluid since 0200. Now having mild contractions and ROM plus positive. GBS positive, admitted in early labor. NST Reviewed and Verified by: Cheryl Jimenez
[2023-07-19] MEDS: Penicillin G POT. 3,000,000 UNITS in Normal Saline 50 ML 100 UNITS IVPB ×3 (15:00→23:17)
--- NOTE | 2023-07-19 15:06 | W.PM.OBNL1 ---
Date of service: 07/19/23 Time of Service: 15:06 Informed Consent Informed Consent: Augmentation of Labor and Risk,Benefits,Alternatives Discussed (Prolonged rupture of membranes and infection risk. ) Pelvic Exam Dilation: 1.5 Effacement (%): 90 station: -1 Cervix Position: mid Consistency: soft Vaginal Exam Presentation: Vertex Pooling: Positive Contractions Monitor Mode: External Contraction Frequency(min): every 5 min Contraction Duration(sec): 50-60 Intensity: Moderate Fetus A Monitor: External (US) Heart Rate Baseline: 140 Presentation: Vertex Variability: Moderate (6-25 BPM) Categories: Category I FHR Rhythm: Regular Accelerations: 15 X 15 Decelerations: None Amniotic Membrane Status: Ruptured Rupture Method: Spontaneous Amniotic Fluid: Clear Assessment and Plan Assessment and plan (1) Prolonged rupture of membranes: Status: Acute Assessment and plan: I offered labor augmentation at this time with misoprostol or pitocin. Anne-Marie declines and prefers to try more natural means of augmentation. Nipple rolling suggested and she would like to try that. Will consider misoprostol later this evening if no evidence of active labor. Objective Abnormal lab results 07/19/23 Range/Units 10:55 WBC 16.89 H (4.4-10.8) 10^3/uL MCV 98 H (80-95) fL MCH 33.1 H (27.0-33.0) pg Alkaline Phosphatase 143 H (46-116) U/L Total Protein 6.3 L (6.4-8.2) g/dL Albumin 2.6 L (3.4-5.0) g/dL Temp Pulse Resp BP Pulse Ox 97.9 F 87 16 132/71 99 07/19/23 14:10 07/19/23 13:35 07/19/23 12:14 07/19/23 13:35 07/19/23 12:14 Laboratory Results WBC 16.89 10^3/uL (4.4-10.8) H 07/19/23 10:55 RBC 3.93 10^6/uL (3.93-5.22) 07/19/23 10:55 Hgb 13.0 g/dL (11.2-15.7) 07/19/23 10:55 Hct 38.5 % (36.0-46.0) 07/19/23 10:55 MCV 98 fL (80-95) H 07/19/23 10:55 MCH 33.1 pg (27.0-33.0) H 07/19/23 10:55 MCHC 33.8 % (32.0-36.0) 07/19/23 10:55 RDW 12.9 % (11.7-14.6) 07/19/23 10:55 Plt Count 257 10^3/uL (130-400) 07/19/23 10:55 MPV 9.3 fL (8.0-11.0) 07/19/23 10:55 Sodium 138 mmol/L (136-145) 07/19/23 10:55 Potassium 3.8 mmol/L (3.5-5.1) 07/19/23 10:55 Chloride 104 mmol/L (98-107) 07/19/23 10:55 Carbon Dioxide 23.1 mmol/L (21.0-32.0) 07/19/23 10:55 Anion Gap 10.9 mmol/L (3-11) 07/19/23 10:55 BUN 8 mg/dL (7-18) 07/19/23 10:55 Creatinine 0.6 mg/dL (0.55-1.02) 07/19/23 10:55 Est GFR (CKD-EPI 2020) 124.53 (mL/min/1.73m2) 07/19/23 10:55 Glucose 85 mg/dL (74-106) 07/19/23 10:55 Calcium 8.8 mg/dL (8.5-10.1) 07/19/23 10:55 Total Bilirubin 0.3 mg/dL (0.2-1.0) 07/19/23 10:55 AST 22 U/L (15-37) 07/19/23 10:55 ALT 37 U/L (14-59) 07/19/23 10:55 Alkaline Phosphatase 143 U/L (46-116) H 07/19/23 10:55 Total Protein 6.3 g/dL (6.4-8.2) L 07/19/23 10:55 Albumin 2.6 g/dL (3.4-5.0) L 07/19/23 10:55 Membranes Rupture Positive 07/19/23 09:55 ABO/Rh O Positive 07/19/23 10:55 Antibody Screen NEGATIVE 07/19/23 10:55 Subjective Patient Reports: No new Complaints Interval history since last seen: Anne-Marie has been ambulating for comfort and is experiencing irregular contrcations which are strong at times. Results Hemoglobin/Hematocrit: Hgb 13.0 g/dL (11.2-15.7) 07/19/23 10:55 Hct 38.5 % (36.0-46.0) 07/19/23 10:55 Abnormal Lab Findings: Abnormal Labs 07/19/23 10:55 WBC 16.89 H MCV 98 H MCH 33.1 H Alkaline Phosphatase 143 H Total Protein 6.3 L Albumin 2.6 L
[2023-07-19] MEDS: Lactated Ringers 1,000 ML 125 ML IV ×2 (15:07→21:54)
--- NOTE | 2023-07-19 16:57 | W.PM.OBNL1 ---
Date of service: 07/19/23 Time of Service: 16:57 Informed Consent Informed Consent: Augmentation of Labor and Risk,Benefits,Alternatives Discussed (Prolonged rupture of membranes and infection risk. ) Pelvic Exam Dilation: 1.5 Effacement (%): 90 station: -1 Cervix Position: mid Consistency: soft Vaginal Exam Presentation: Cephalic Contractions Monitor Mode: External Contraction Frequency(min): every 3-8 Contraction Duration(sec): 60 Intensity: Moderate Fetus A Monitor: External (US) Heart Rate Baseline: 140 Variability: Moderate (6-25 BPM) Categories: Category I FHR Rhythm: Regular Accelerations: 15 X 15 Decelerations: None Assessment and Plan Assessment and plan (1) Prolonged rupture of membranes: Status: Acute Assessment and plan: Discussed labor augmentation with misoprostol or pitocin. She would like to avoid pitocin if possible. She would like to rest and have an epidural and will consider misoprostol if necessary for labor augmentation. Neal ARLENE was paged for labor analgesia. Risks and benefits of augmentation or expectant management discussed including increased risk of infection and fatigue if labor augmentation is delayed. Dr Trevizo who is the [employer] home demonstrator was notified of patient's status. Objective Abnormal lab results 07/19/23 Range/Units 10:55 WBC 16.89 H (4.4-10.8) 10^3/uL MCV 98 H (80-95) fL MCH 33.1 H (27.0-33.0) pg Alkaline Phosphatase 143 H (46-116) U/L Total Protein 6.3 L (6.4-8.2) g/dL Albumin 2.6 L (3.4-5.0) g/dL Temp Pulse Resp BP Pulse Ox 97.5 F L 85 16 115/76 99 07/19/23 16:00 07/19/23 15:47 07/19/23 12:14 07/19/23 15:47 07/19/23 12:14 Laboratory Results WBC 16.89 10^3/uL (4.4-10.8) H 07/19/23 10:55 RBC 3.93 10^6/uL (3.93-5.22) 07/19/23 10:55 Hgb 13.0 g/dL (11.2-15.7) 07/19/23 10:55 Hct 38.5 % (36.0-46.0) 07/19/23 10:55 MCV 98 fL (80-95) H 07/19/23 10:55 MCH 33.1 pg (27.0-33.0) H 07/19/23 10:55 MCHC 33.8 % (32.0-36.0) 07/19/23 10:55 RDW 12.9 % (11.7-14.6) 07/19/23 10:55 Plt Count 257 10^3/uL (130-400) 07/19/23 10:55 MPV 9.3 fL (8.0-11.0) 07/19/23 10:55 Sodium 138 mmol/L (136-145) 07/19/23 10:55 Potassium 3.8 mmol/L (3.5-5.1) 07/19/23 10:55 Chloride 104 mmol/L (98-107) 07/19/23 10:55 Carbon Dioxide 23.1 mmol/L (21.0-32.0) 07/19/23 10:55 Anion Gap 10.9 mmol/L (3-11) 07/19/23 10:55 BUN 8 mg/dL (7-18) 07/19/23 10:55 Creatinine 0.6 mg/dL (0.55-1.02) 07/19/23 10:55 Est GFR (CKD-EPI 2020) 124.53 (mL/min/1.73m2) 07/19/23 10:55 Glucose 85 mg/dL (74-106) 07/19/23 10:55 Calcium 8.8 mg/dL (8.5-10.1) 07/19/23 10:55 Total Bilirubin 0.3 mg/dL (0.2-1.0) 07/19/23 10:55 AST 22 U/L (15-37) 07/19/23 10:55 ALT 37 U/L (14-59) 07/19/23 10:55 Alkaline Phosphatase 143 U/L (46-116) H 07/19/23 10:55 Total Protein 6.3 g/dL (6.4-8.2) L 07/19/23 10:55 Albumin 2.6 g/dL (3.4-5.0) L 07/19/23 10:55 Membranes Rupture Positive 05/20/24 09:55 ABO/Rh O Positive 07/19/23 10:55 Antibody Screen NEGATIVE 07/19/23 10:55 Subjective Patient Reports: No new Complaints Interval history since last seen: Anne-Marie has been ambulating and trying various positions to bring on stronger contractions including side-lying release. Her contraction became stronger but are now less strong and she is complaining of fatigue. She would like to discuss options. Results Hemoglobin/Hematocrit: Hgb 13.0 g/dL (11.2-15.7) 07/19/23 10:55 Hct 38.5 % (36.0-46.0) 07/19/23 10:55 Abnormal Lab Findings: Abnormal Labs 07/19/23 10:55 WBC 16.89 H MCV 98 H MCH 33.1 H Alkaline Phosphatase 143 H Total Protein 6.3 L Albumin 2.6 L
--- NOTE | 2023-07-19 18:04 | W.ANESNEU ---
Epidural/Spinal Catheter Date Performed: 07/19/23 Procedure Start: 17:27 Procedure Stop: 17:31 Requesting Provider: Cheryl Jimenez Procedure Location: Obstetrics Reason Performed: Labor Epidural Standard Monitors Applied: Blood Pressure and SpO2 Patient Position: Sitting Sedation Given (Indicate Dose Given): No Sedation given Patient Mental Status: Awake Sterility: Hand Hygiene, Surgical Cap, Surgical Mask, Sterile Gloves, Sterile Drape/Sheet and Chlorhexidine Procedure Location: L3-L4 Interspace Epidural Needle: Tuohy 17 Guage Needle Length: 3.5 Inch Needle Approach: Midline Epidural Procedure: MARY to Saline Used Catheter Placed?: Catheter Placed (wire reinforced. ) Test Dose (Indicate Dose Given): 3ml 1.5% Lidocaine with 1:200K Epinephrine Given and Negative Test Dose Loss of Resistance Depth (cm): 6 Catheter depth at skin (cm): 11 Dressing: [place]orbaview Dressing Placed, Mastisol Used and Dressing reinforced with Tape Epidural Provider Bolus (Indicate Dose Given): Total Ropivacaine 0.1% with Fentanyl 2mcg/ml Given from pump. (ml) Dose:: 6 mL Additives (Indicate Dose Given ): None Infusion Medication: No Infusion Started Block Level: N/A Paresthesia: None Ultrasound: Used to guerrero site Number of Attempts (See previous attempts in note section): 1 Procedure Tolerated: Other (light headed after procedure was completed. ) Procedure Outcome: Successful Procedure Comment:: Negative test dose was observed. Shortly there after complained of lightheadedness. BP was cycled with a good MAP. Signs and symptoms of a positive test dose remained absent. a loading dose was performed via the pump in conjunction with an IVF bolus. Right side is slightly more dense of a block. Performed By: Neal Ryder
[2023-07-19] MEDS: Lactated Ringers 250 ML 500 ML IV (18:23)
[2023-07-19] MEDS: FentaNYL/ROPIvacaine 2 mcg/ml and 0.1% 200 ML CADD Cassette EP (18:23)
[2023-07-19] MEDS: Oxytocin/Normal Saline 30 UNIT/500 ML BAG 2 UNITS IV (19:25)
[2023-07-19] MEDS: Acetaminophen 500 MG TAB 1000 MG PO (19:56)
--- NOTE | 2023-07-19 20:25 | W.PM.OBNL1 ---
Date of service: 07/19/23 Time of Service: 21:05 Informed Consent Informed Consent: Augmentation of Labor and Risk,Benefits,Alternatives Discussed (Prolonged rupture of membranes and infection risk. ) Pelvic Exam Comments: SVE deferred Contractions Monitor Mode: External Contraction Frequency(min): every 3 minutes Contraction Duration(sec): 40-50 Intensity: Moderate Fetus A Monitor: External (US) Heart Rate Baseline: 140 Variability: Moderate (6-25 BPM) Categories: Category I FHR Rhythm: Regular Decelerations: None Assessment and Plan Assessment and plan (1) Prolonged rupture of membranes: Status: Acute Assessment and plan: Labor augmentation continues. Anticipate . Comfort measures and position changes encouraged. Nubain 10 mg SC for rest. Objective Abnormal lab results 07/19/23 Range/Units 10:55 WBC 16.89 H (4.4-10.8) 10^3/uL MCV 98 H (80-95) fL MCH 33.1 H (27.0-33.0) pg Alkaline Phosphatase 143 H (46-116) U/L Total Protein 6.3 L (6.4-8.2) g/dL Albumin 2.6 L (3.4-5.0) g/dL Temp Pulse Resp BP Pulse Ox 99.1 F 95 H 16 118/77 97 07/19/23 19:29 07/19/23 19:29 07/19/23 12:14 07/19/23 19:29 07/19/23 18:01 Laboratory Results WBC 16.89 10^3/uL (4.4-10.8) H 07/19/23 10:55 RBC 3.93 10^6/uL (3.93-5.22) 07/19/23 10:55 Hgb 13.0 g/dL (11.2-15.7) 07/19/23 10:55 Hct 38.5 % (36.0-46.0) 07/19/23 10:55 MCV 98 fL (80-95) H 07/19/23 10:55 MCH 33.1 pg (27.0-33.0) H 07/19/23 10:55 MCHC 33.8 % (32.0-36.0) 07/19/23 10:55 RDW 12.9 % (11.7-14.6) 07/19/23 10:55 Plt Count 257 10^3/uL (130-400) 07/19/23 10:55 MPV 9.3 fL (8.0-11.0) 07/19/23 10:55 Sodium 138 mmol/L (136-145) 07/19/23 10:55 Potassium 3.8 mmol/L (3.5-5.1) 07/19/23 10:55 Chloride 104 mmol/L (98-107) 07/19/23 10:55 Carbon Dioxide 23.1 mmol/L (21.0-32.0) 07/19/23 10:55 Anion Gap 10.9 mmol/L (3-11) 07/19/23 10:55 BUN 8 mg/dL (7-18) 07/19/23 10:55 Creatinine 0.6 mg/dL (0.55-1.02) 07/19/23 10:55 Est GFR (CKD-EPI 2020) 124.53 (mL/min/1.73m2) 07/19/23 10:55 Glucose 85 mg/dL (74-106) 07/19/23 10:55 Calcium 8.8 mg/dL (8.5-10.1) 07/19/23 10:55 Total Bilirubin 0.3 mg/dL (0.2-1.0) 07/19/23 10:55 AST 22 U/L (15-37) 07/19/23 10:55 ALT 37 U/L (14-59) 07/19/23 10:55 Alkaline Phosphatase 143 U/L (46-116) H 07/19/23 10:55 Total Protein 6.3 g/dL (6.4-8.2) L 07/19/23 10:55 Albumin 2.6 g/dL (3.4-5.0) L 07/19/23 10:55 Membranes Rupture Positive 07/19/23 09:55 ABO/Rh O Positive 07/19/23 10:55 Antibody Screen NEGATIVE 07/19/23 10:55 Subjective Patient Reports: New Complaints Interval history since last seen: Anne-Marie had an IV in her left forearm which was replaced due to discomfort. She continues to report severe pain in the area of the previous I.V. when the penicillin was infusing. She was given tylenol 1000 mg PO. The pain stopped after the penicillin dose was completed. She has been unable to rest due to arm discomfort. Straight cathed for 300 cc. Novii placed for better monitoring of contraction pattern. Results Hemoglobin/Hematocrit: Hgb 13.0 g/dL (11.2-15.7) 07/19/23 10:55 Hct 38.5 % (36.0-46.0) 07/19/23 10:55 Abnormal Lab Findings: Abnormal Labs 07/19/23 10:55 WBC 16.89 H MCV 98 H MCH 33.1 H Alkaline Phosphatase 143 H Total Protein 6.3 L Albumin 2.6 L
--- NOTE | 2023-07-19 23:43 | W.PM.OBNL1 ---
Date of service: 07/19/23 Time of Service: 23:43 Informed Consent Informed Consent: Augmentation of Labor and Risk,Benefits,Alternatives Discussed (Prolonged rupture of membranes and infection risk. ) Pelvic Exam Dilation: 6 Effacement (%): 100 station: -1 Cervix Position: mid Consistency: soft Contractions Monitor Mode: External Contraction Frequency(min): every 2 min Contraction Duration(sec): 60 Intensity: Moderate/Strong Fetus A Monitor: External (US) Heart Rate Baseline: 130 Variability: Moderate (6-25 BPM) Categories: Category I FHR Rhythm: Regular Accelerations: 15 X 15 Decelerations: Variable Recurrence: Episodic Assessment and Plan Assessment and plan (1) Prolonged rupture of membranes: Status: Acute Assessment and plan: Neal JACOBS placed a midline in her left arm and will continue to assess labor pattern and anticipate . Will increase pitocin rate PRN. Objective Abnormal lab results 07/19/23 Range/Units 10:55 WBC 16.89 H (4.4-10.8) 10^3/uL MCV 98 H (80-95) fL MCH 33.1 H (27.0-33.0) pg Alkaline Phosphatase 143 H (46-116) U/L Total Protein 6.3 L (6.4-8.2) g/dL Albumin 2.6 L (3.4-5.0) g/dL Temp Pulse Resp BP Pulse Ox 97.9 F 103 H 16 120/65 97 07/19/23 23:09 07/19/23 23:39 07/19/23 21:30 07/19/23 23:30 07/19/23 18:01 Laboratory Results WBC 16.89 10^3/uL (4.4-10.8) H 07/19/23 10:55 RBC 3.93 10^6/uL (3.93-5.22) 07/19/23 10:55 Hgb 13.0 g/dL (11.2-15.7) 07/19/23 10:55 Hct 38.5 % (36.0-46.0) 07/19/23 10:55 MCV 98 fL (80-95) H 07/19/23 10:55 MCH 33.1 pg (27.0-33.0) H 07/19/23 10:55 MCHC 33.8 % (32.0-36.0) 07/19/23 10:55 RDW 12.9 % (11.7-14.6) 07/19/23 10:55 Plt Count 257 10^3/uL (130-400) 07/19/23 10:55 MPV 9.3 fL (8.0-11.0) 07/19/23 10:55 Sodium 138 mmol/L (136-145) 07/19/23 10:55 Potassium 3.8 mmol/L (3.5-5.1) 07/19/23 10:55 Chloride 104 mmol/L (98-107) 07/19/23 10:55 Carbon Dioxide 23.1 mmol/L (21.0-32.0) 07/19/23 10:55 Anion Gap 10.9 mmol/L (3-11) 07/19/23 10:55 BUN 8 mg/dL (7-18) 07/19/23 10:55 Creatinine 0.6 mg/dL (0.55-1.02) 07/19/23 10:55 Est GFR (CKD-EPI 2020) 124.53 (mL/min/1.73m2) 07/19/23 10:55 Glucose 85 mg/dL (74-106) 07/19/23 10:55 Calcium 8.8 mg/dL (8.5-10.1) 07/19/23 10:55 Total Bilirubin 0.3 mg/dL (0.2-1.0) 07/19/23 10:55 AST 22 U/L (15-37) 07/19/23 10:55 ALT 37 U/L (14-59) 07/19/23 10:55 Alkaline Phosphatase 143 U/L (46-116) H 07/19/23 10:55 Total Protein 6.3 g/dL (6.4-8.2) L 07/19/23 10:55 Albumin 2.6 g/dL (3.4-5.0) L 07/19/23 10:55 Membranes Rupture Positive 07/19/23 09:55 ABO/Rh O Positive 07/19/23 10:55 Antibody Screen NEGATIVE 07/19/23 10:55 Vital Signs Reviewed: Yes Subjective Patient Reports: New Complaints Interval history since last seen: Davide received stadol as nubain was unavailable. She slept well for about an hour and awoke with severe pain due to contractions. Pitocin was decreased from 10 mu/min to 6 mu/min and she used nitrous oxide with good effect. The fourth dose of penicillin was hung and she began experiencing severe pain in her arm due to the medication. Neal JACOBS was called and he provided an epidural bolus with good effect. Results Hemoglobin/Hematocrit: Hgb 13.0 g/dL (11.2-15.7) 07/19/23 10:55 Hct 38.5 % (36.0-46.0) 07/19/23 10:55 Abnormal Lab Findings: Abnormal Labs 07/19/23 10:55 WBC 16.89 H MCV 98 H MCH 33.1 H Alkaline Phosphatase 143 H Total Protein 6.3 L Albumin 2.6 L
[2023-07-20] VITALS (147 sets, daily range): BP systolic 97–202; BP diastolic 55–104; PULSE 73–166; RESP 16–20; TEMP 36.5–37.9; O2SAT 96–98
--- NOTE | 2023-07-20 00:17 | W.ANESNEU ---
Anesthesia Note Report Anesthesia Note: Was paged back due to increasing discomfort. She had been sleeping with good relief from the epidural, but with the addition of augmentation she is not as comfortable as she was. She describes her legs feeling fairly uniformly numb, however her lower abdomen is not as numb as previous, also her perineum. At ~ 2326 a 7 mL bolus was provided off the pump with some effect. It was difficult to ascertain the effectiveness of the bolus due to the fact that she was complaining of extreme pain from her penicillin infusion. She was offered a midline catheter at this point (see vascular access note). A bolus of 7 mL was repeated ~0007, and her rate was increased to 12 mL/hr. With the midline in place and the additional boluses she appears and feels more comfortable. She talked with me during a contraction and appeared comfortable (had been using nitrous).
--- NOTE | 2023-07-20 00:23 | W.ANESVAS ---
Midline Placement Date Performed: 07/20/23 Procedure Time: 23:54 Requesting Provider: Neal Ryder Procedure Location: Obstetrics Sedation Given (Indicate Dose Given): No Sedation given Patient Mental Status: Awake Sterility: Hand Hygiene, Surgical Cap, Surgical Mask, Sterile Gloves, Sterile Drape/Sheet and Chlorhexidine Laterality: Left Insertion Site: Basilic Midline Device: PowerGlide Pro 18G Catheter Length: 10 cm Midline Procedure Procedure: 1% Lidocaine to skin and subcutaneous tissue with 25g needle and Catheter placed without resistance Dressing: Tegaderm Applied and Statlock Applied Blood Return: Present Flushes: Easily Ultrasound: Sterile probe cover and gel used Ultrasound Image Saved?: Yes Number of Attempts (See previous attempts in note section): 1 Procedure Tolerated: No Complications Procedure Outcome: Successful Performed By: Neal Ryder
--- NOTE | 2023-07-20 04:22 | W.PM.OBNL1 ---
Date of service: 07/20/23 Time of Service: 04:22 Informed Consent Informed Consent: Augmentation of Labor and Risk,Benefits,Alternatives Discussed (Prolonged rupture of membranes and infection risk. ) Pelvic Exam Dilation: 10 station: +2 Vaginal Exam Presentation: Cephalic Contractions Monitor Mode: External Contraction Frequency(min): every 2-3 minutes Contraction Duration(sec): 60 Intensity: Strong Fetus A Monitor: External (US) Heart Rate Baseline: 150 Variability: Moderate (6-25 BPM) Categories: Category I FHR Rhythm: Regular Accelerations: 15 X 15 Decelerations: Variable Assessment Note: An episode of tachycardia to 170-180 associated with maternal pushing. An IV bolus was provided and oxygen by mask. The pitocin was discontinued and restarted at 1/2 the previous rate f 8 mu/min. Anne-Marie took a break from pushing on her hands and knees and heart rate returned to 150s with no decelerations. She resumed pushing in various positions. Assessment and Plan Assessment and plan (1) Prolonged rupture of membranes: Status: Acute Assessment and plan: Will continue to encourage pushing and anticipate . Will consult with Dr Trevizo if decelerations recur. Objective Abnormal lab results 07/19/23 Range/Units 10:55 WBC 16.89 H (4.4-10.8) 10^3/uL MCV 98 H (80-95) fL MCH 33.1 H (27.0-33.0) pg Alkaline Phosphatase 143 H (46-116) U/L Total Protein 6.3 L (6.4-8.2) g/dL Albumin 2.6 L (3.4-5.0) g/dL Temp Pulse Resp BP Pulse Ox 99.0 F 129 H 16 202/104 H 97 07/20/23 03:13 07/20/23 04:21 07/19/23 21:30 07/20/23 04:21 07/19/23 18:01 Laboratory Results WBC 16.89 10^3/uL (4.4-10.8) H 07/19/23 10:55 RBC 3.93 10^6/uL (3.93-5.22) 07/19/23 10:55 Hgb 13.0 g/dL (11.2-15.7) 07/19/23 10:55 Hct 38.5 % (36.0-46.0) 07/19/23 10:55 MCV 98 fL (80-95) H 07/19/23 10:55 MCH 33.1 pg (27.0-33.0) H 07/19/23 10:55 MCHC 33.8 % (32.0-36.0) 07/19/23 10:55 RDW 12.9 % (11.7-14.6) 07/19/23 10:55 Plt Count 257 10^3/uL (130-400) 07/19/23 10:55 MPV 9.3 fL (8.0-11.0) 07/19/23 10:55 Sodium 138 mmol/L (136-145) 07/19/23 10:55 Potassium 3.8 mmol/L (3.5-5.1) 07/19/23 10:55 Chloride 104 mmol/L (98-107) 07/19/23 10:55 Carbon Dioxide 23.1 mmol/L (21.0-32.0) 07/19/23 10:55 Anion Gap 10.9 mmol/L (3-11) 07/19/23 10:55 BUN 8 mg/dL (7-18) 07/19/23 10:55 Creatinine 0.6 mg/dL (0.55-1.02) 07/19/23 10:55 Est GFR (CKD-EPI 2020) 124.53 (mL/min/1.73m2) 07/19/23 10:55 Glucose 85 mg/dL (74-106) 07/19/23 10:55 Calcium 8.8 mg/dL (8.5-10.1) 07/19/23 10:55 Total Bilirubin 0.3 mg/dL (0.2-1.0) 07/19/23 10:55 AST 22 U/L (15-37) 07/19/23 10:55 ALT 37 U/L (14-59) 07/19/23 10:55 Alkaline Phosphatase 143 U/L (46-116) H 07/19/23 10:55 Total Protein 6.3 g/dL (6.4-8.2) L 07/19/23 10:55 Albumin 2.6 g/dL (3.4-5.0) L 07/19/23 10:55 Membranes Rupture Positive 07/19/23 09:55 ABO/Rh O Positive 07/19/23 10:55 Antibody Screen NEGATIVE 07/19/23 10:55 Subjective Patient Reports: No new Complaints Interval history since last seen: Anne-Marie awoke with an urge to push. She was examined and was 10 cms dilated. She was encouraged to push. Pushing effort was limited by a heavy epidural block and she was encouraged to rest when she became fatigued. She took a nap and resumed pushing. She declined to push on her back due to concern about a previous coccygeal injury. Results Hemoglobin/Hematocrit: Hgb 13.0 g/dL (11.2-15.7) 07/19/23 10:55 Hct 38.5 % (36.0-46.0) 07/19/23 10:55 Abnormal Lab Findings: Abnormal Labs 07/19/23 10:55 WBC 16.89 H MCV 98 H MCH 33.1 H Alkaline Phosphatase 143 H Total Protein 6.3 L Albumin 2.6 L
--- NOTE | 2023-07-20 05:00 | W.PM.OBNL1 ---
Date of service: 07/20/23 Time of Service: 05:00 Informed Consent Informed Consent: Augmentation of Labor and Risk,Benefits,Alternatives Discussed (Prolonged rupture of membranes and infection risk. ) Contractions Monitor Mode: External Contraction Frequency(min): every 3-4 minutes Contraction Duration(sec): 60 Intensity: Moderate/Strong Fetus A Monitor: External (US) Heart Rate Baseline: 150 Variability: Moderate (6-25 BPM) Categories: Category I FHR Rhythm: Regular Accelerations: 15 X 15 Decelerations: Variable Recurrence: Episodic (associated with contractions. ) Assessment and Plan Assessment and plan (1) Prolonged rupture of membranes: Status: Acute Assessment and plan: Will allow Anne-Marie to rest until she feels ready to resume pushing. Will plan to increase the pitocin as needed, Anticipate Objective Abnormal lab results 07/19/23 Range/Units 10:55 WBC 16.89 H (4.4-10.8) 10^3/uL MCV 98 H (80-95) fL MCH 33.1 H (27.0-33.0) pg Alkaline Phosphatase 143 H (46-116) U/L Total Protein 6.3 L (6.4-8.2) g/dL Albumin 2.6 L (3.4-5.0) g/dL Temp Pulse Resp BP Pulse Ox 99.0 F 96 H 16 123/59 L 97 07/20/23 03:13 07/20/23 04:59 07/19/23 21:30 07/20/23 04:24 07/19/23 18:01 Laboratory Results WBC 16.89 10^3/uL (4.4-10.8) H 07/19/23 10:55 RBC 3.93 10^6/uL (3.93-5.22) 07/19/23 10:55 Hgb 13.0 g/dL (11.2-15.7) 07/19/23 10:55 Hct 38.5 % (36.0-46.0) 07/19/23 10:55 MCV 98 fL (80-95) H 07/19/23 10:55 MCH 33.1 pg (27.0-33.0) H 07/19/23 10:55 MCHC 33.8 % (32.0-36.0) 07/19/23 10:55 RDW 12.9 % (11.7-14.6) 07/19/23 10:55 Plt Count 257 10^3/uL (130-400) 07/19/23 10:55 MPV 9.3 fL (8.0-11.0) 07/19/23 10:55 Sodium 138 mmol/L (136-145) 07/19/23 10:55 Potassium 3.8 mmol/L (3.5-5.1) 07/19/23 10:55 Chloride 104 mmol/L (98-107) 07/19/23 10:55 Carbon Dioxide 23.1 mmol/L (21.0-32.0) 07/19/23 10:55 Anion Gap 10.9 mmol/L (3-11) 07/19/23 10:55 BUN 8 mg/dL (7-18) 07/19/23 10:55 Creatinine 0.6 mg/dL (0.55-1.02) 07/19/23 10:55 Est GFR (CKD-EPI 2020) 124.53 (mL/min/1.73m2) 07/19/23 10:55 Glucose 85 mg/dL (74-106) 07/19/23 10:55 Calcium 8.8 mg/dL (8.5-10.1) 07/19/23 10:55 Total Bilirubin 0.3 mg/dL (0.2-1.0) 07/19/23 10:55 AST 22 U/L (15-37) 07/19/23 10:55 ALT 37 U/L (14-59) 07/19/23 10:55 Alkaline Phosphatase 143 U/L (46-116) H 07/19/23 10:55 Total Protein 6.3 g/dL (6.4-8.2) L 07/19/23 10:55 Albumin 2.6 g/dL (3.4-5.0) L 07/19/23 10:55 Membranes Rupture Positive 07/19/23 09:55 ABO/Rh O Positive 07/19/23 10:55 Antibody Screen NEGATIVE 07/19/23 10:55 Subjective Patient Reports: New Complaints Interval history since last seen: Anne-Marie feels that her pain is preventing her from effective pushing. She became very upset at the nurse's suggestion to try semiflowlers pushing on an inflatable donut. She requested to resume pushing her [employer] button to try to become more comfortable. She requested another break from pushing and she was positioned on her right side with the peanut ball. I notified Dr Trevizo of patient status at 0445 and heart rate was 160s with no decelerations at that time. Pitocin remains at 4 mu/minute. Results Hemoglobin/Hematocrit: Hgb 13.0 g/dL (11.2-15.7) 07/19/23 10:55 Hct 38.5 % (36.0-46.0) 07/19/23 10:55 Abnormal Lab Findings: Abnormal Labs 07/19/23 10:55 WBC 16.89 H MCV 98 H MCH 33.1 H Alkaline Phosphatase 143 H Total Protein 6.3 L Albumin 2.6 L
[2023-07-20] MEDS: Lactated Ringers 1,000 ML 125 ML IV (05:29)
[2023-07-20] MEDS: Penicillin G POT. 3,000,000 UNITS in Normal Saline 50 ML 100 UNITS IVPB (05:37)
[2023-07-20] MEDS: Oxytocin/Normal Saline 30 UNIT/500 ML BAG 95 UNITS IV (07:57)
--- NOTE | 2023-07-20 08:59 | W.OBDELIVERY ---
Date of service: 07/20/23 Time of Service: 08:59 OB Labor/ Delivery Information Baby A Delivery Delivery Method: Spontaneaous Presentation: Cephalic Cephalic Position: Vertex Vertex Position: Left Occipital Anterior Cord Description-Baby A: 3 Vessels Cord Description Comment: short cord Amniotic Fluid: Clear Estimated Blood Loss: 200 Delivery Outcome: Liveborn Infant Transferred: Remains with Mother Note: Anne-Marie had an epidural bolus administered by Neal JACOBS. She also used nitrous oxide occasionally for pain while pushing. FHTs 130-140s during first stage of labor. Anne-Marie progressed to full dilation and began pushing. Second stage huddle was done. FHTs in 2nd stage was 150s with episodic variable decelerations associated with contractions and occasional periods of tachycardia which resolved when Anne-Marie stopped pushing. Anne-Marie started pushing at 0130 and took some breaks and napped when she had difficulty continuing due to pain and fatigue. Dr Trevizo was notified by telephone of slow progress and heart rate pattern at 0445. Anne-Marie napped after 0500 and awoke with a stronger urge to push and began pushing well. There was slow descent of the vertex. Dr Long was called to the delivery room at 0600 and she was present for delivery. Dr Trevizo was also present on the unit at delivery and aware of Anne-Marie's progress and heart pattern. With Anne-Marie's permission, a midline episiotomy was cut and shortly after, there was a spontaneous delivery of a female infant delivered in [place] position. Baby Germaine was placed on mother's abdomen and dried and stimulated. Spontaneous cry. Cord was clamped and cut by the baby's father and was noted to be short. The placenta delivered spontaneously and appears to by intact with a three vessel cord. Pitocin 30 units IV was administered after delivery of the placenta. The perineum was inspected and it was intact with a three vessel cord. The baby did breastfeed. After delivery, Mother and baby and father of the baby were stable and bonding well in the delivery room and there were no complications. Providers Nurse Director Dental Services: Cheryl Jimenez Pumper Gauger Apprentice: Jeanne Sepulveda Nurse: Rhoda Felder Nurse: Lona Hernandez Labor/Delivery Information Number of Babies in Womb: 1 Steroids Given: None Reason Steroids Not Administered: N/A Group Beta Strep: Positive Antibiotics Administered: Yes Number of Doses of Antibiotics: 4 Medication in Delivery: pitocin, fent/rop Maternal Complications: Abnormal Cord Length, Maternal Fever, Prolonged Labor(>20hrs) and Prolonged Second Stage(>2hrs) Shoulder Dystocia: No Stages of Labor Onset of Labor Date: 07/19/23 Onset of Labor Time: 02:00 Complete Dilatation Date: 07/20/23 Complete Dilatation Time: 01:36 Labor - Stage 1 Duration: 23 hours and 36 minutes ROM Baby A: 07/19/23 ROM Baby A: 02:45 ROM Total Time- Baby A: [id number] Infant Delivery Date-Baby A: 07/20/23 Delivery Time-Baby A: 07:53 Labor Stage 2 Duration: 6 hours and 17 minutes Placenta Delivery Date-Baby A: 07/20/23 Placenta Delivery Time-Baby A: 07:59 Labor-Stage 3 Duration: 6 minutes Total Length of Labor-Baby A: 29 hours and 53 minutes Placenta Cultured: No Placenta Status: Delivered Baby A Gender: Female Gestational Status: Early Term (37-38.6 wks) Gestational Age in Weeks/Days: 37 Weeks and 6 Days Score-1 Minute Interval(Baby A) Heart Rate-1 minute: 100 BPM or Greater Respiratory Effort- 1 minute: Spontaneous/Strong Cry Muscle Tone-1 minute: Active Movement Reflex Response-1 minute: Prompt Response Color-1 minute: Pallor or Cyanosis Total Score-1 minute: 8 Score-5 Minute Interval(Baby A) Heart Rate- 5 minute: 100 BPM or Greater Respiratory Effort-5 minute: Spontaneous/Strong Cry Muscle Tone-5 minute: Active Movement Reflex Response-5 minute: Prompt Response Color-5 minute: Bluish Hands or Feet Total Score- 5 minute: 9 Interventions Repair of Laceration Type: Perineal, Laceration Extension: Second Degree. Sponge Count Correct: No Sponges Placed in Vagina, Sharp Count Correct: Yes. Laceration Repair Note: Repair with 2-0 and 3-0 vicryl suture.
[2023-07-20] MEDS: Acetaminophen 325 MG TAB 650 MG PO ×3 (09:31→23:30)
[2023-07-20] MEDS: Ibuprofen 600 MG TAB PO ×2 (09:31→15:44)
[2023-07-20] MEDS: Hamamelis Leaf/Glycerin 100 EACH BOX PR (09:31)
[2023-07-20] MEDS: Dibucaine 1% 28 GM TUBE TP (09:31)
--- NOTE | 2023-07-20 14:00 | W.ANESPOSTOP ---
Postoperative Evaluation Date, Time and Location Date Performed: 07/20/23 Time Performed: 14:00 Patient Location: Obstetrics Vital Signs Most Recent Imported Vital Signs: Most Recent Vital Signs Temp Pulse Resp BP Pulse Ox 37.2 C 90 18 118/63 96 07/20/23 12:00 07/20/23 12:00 07/20/23 12:27 07/20/23 12:00 07/20/23 12:00 Pain Score Most Recent Pain Score: Most Recent Pain Score Pain Level 0 07/19/23 10:35 Assessment Mental Status: Awake (Alert & Oriented to Patient Baseline) Airway and Respiratory Function: Patent airway with normal (patient baseline) respiratory exam Cardiovascular Function: Hemodynamically Stable Hydration Status: Adequately Hydrated Nausea & Vomiting: No Nausea or Vomiting Pain: Pt. Denies Any Pain Peripheral Nerve Block: Patient did not receive a nerve block
[2023-07-20] MEDS: Lidocaine 4% Cream 5 GM TUBE TP (15:50)
[2023-07-20] MEDS: Docusate Sodium 100 MG CAP PO (23:30)
[2023-07-20] MEDS: lamoTRIgine 100 MG TAB 300 MG PO (23:30)
[2023-07-21] MEDS: Ibuprofen 600 MG TAB PO ×3 (05:00→18:41)
[2023-07-21] MEDS: Docusate Sodium 100 MG CAP PO ×2 (07:56→22:51)
[2023-07-21] MEDS: Acetaminophen 325 MG TAB 650 MG PO ×3 (07:57→16:35)
--- NOTE | 2023-07-21 08:53 | W.PM.OBPNV1 ---
Date of service: 07/21/23 Time of Service: 08:54 Assessment and Plan Assessment and plan (1) Term delivered: Status: Acute Assessment and plan: A: PPD#1, nml recovery except for bladder atony well Satisfied with experience, still processing P: Gonzalez in place, bladder retraining this afternoon Consult with Dr. Castle for same Plan discharge tomorrow pending ability to spontaneously void Offer MMR vaccine Routine care and support (2) Urinary retention with incomplete bladder emptying: Status: Acute Assessment and plan: Gonzalez inserted at 1530 yesterday, after several straight cath's produced large residual urine volumes Will keep in place for 24 hrs, then utilize bladder retraining procedure of clamping x3 hrs/release & repeat Hope to remove gonzalez by tonight Exam Physical Exam Vital signs: Temp Pulse Resp BP Pulse Ox 98.2 F 88 18 110/70 98 07/20/23 21:00 07/20/23 21:00 07/20/23 21:00 07/20/23 21:00 07/20/23 21:00 Vital Signs Reviewed: Yes Constitutional Constitutional: no acute distress, average body habitus and cooperative HEENT Exam HEENT Exam: Normal Neck Exam Neck Exam: Normal Breast Exam Bilateral: Breast Exam: Normal and Soft Nipple Exam: Normal and Uninjured Respiratory Exam Respiratory Exam: Normal Cardiovascular Exam Cardiovascular Exam: Normal Abdominal Exam Abdomen: Other (soft, nontender) Fundal Exam Fundus: Below Umbilicus and Firm Rectal Exam Rectal Exam: Normal Exam Perineum: Repair Intact Comments: gonzalez in place Extremities Exam Extremity Exam: Normal, Full ROM and Warm to Touch Back/Spine/Pelvis Exam Back Exam: Normal Skin Exam Skin Exam: Normal Neurological Exam Neurological Exam: Normal Psychiatric Exam Psychiatric Exam: Normal
[2023-07-21 15:15] VITALS: BP 112/74; PULSE 81; RESP 18; TEMP 36.9
[2023-07-21 21:15] VITALS: BP 115/71; PULSE 76; RESP 18; TEMP 36.6
[2023-07-21] MEDS: lamoTRIgine 100 MG TAB 300 MG PO (22:51)
[2023-07-22] MEDS: Hamamelis Leaf/Glycerin 100 EACH BOX PR (00:24)
[2023-07-22] MEDS: Lidocaine 1% Multi-Dose 20 ML VIAL IJ (00:24)
[2023-07-22 03:00] VITALS: BP 105/59; PULSE 100; RESP 18; TEMP 36.8
[2023-07-22] MEDS: Acetaminophen 325 MG TAB 650 MG PO ×2 (06:12→11:00)
[2023-07-22] MEDS: Ibuprofen 600 MG TAB PO ×2 (06:12→11:00)
--- NOTE | 2023-07-22 08:04 | OBPPV_ITS ---
Date of service: 07/22/23 Time of Service: 08:04 Assessment and Plan Assessment and plan (1) Term delivered: Status: Acute Assessment and plan: A: PPD#2, voiding regularly since gonzalez removed Consultation with Avery Isidro NP in urology, will order formal referral Renal scan nml though 200-300 ml PVR documented P: Pt desires to go home today, MMR before discharge Pt status reviewed with Dr. López To measure urine volume at home, attempt double voids, keep a diary, bring to 2 wk check Pt to call pelvic floor PT, schedule 6 wk evaluation Seen 07/15 @ [facility] urogyn, is to be seen again in 6 months Plans fertility awareness and condoms for BCM Written instructions reviewed and given to pt F/up with business systems developer in 2 & 6 wks (2) Urinary retention with incomplete bladder emptying: Status: Acute Assessment and plan: Gonzalez removed last night, post void residuals <400 per scanner Fundus remains midline and firm, minimal rubra; renal US nml today Pt states she is comfortable and feels normal urge to void every 3-4 hrs I reviewed consult from [facility] urogyn 07/16/23 and [facility] urology notes from 06/13/2018 Pt was instructed to return to [facility] with a bladder diary 6 months Pt has referral in place with pelvic floor PT program Subjective Subjective Patient comments: No complaints, Pain well controlled and Bowel Movement Patient's Mood: feeling well [place] baby status: Doing well, Nursing well, Rooming in and Strong Bonding Observed [place] feeding status: Exclusively breast feeding Exam Physical Exam Vital signs: Temp Pulse Resp BP Pulse Ox 98.2 F 100 H 18 105/59 L 98 07/22/23 03:00 07/22/23 03:00 07/22/23 03:00 07/22/23 03:00 07/20/23 21:00 Vital Signs Reviewed: Yes Constitutional Constitutional: no acute distress, average body habitus and cooperative HEENT Exam HEENT Exam: Normal Neck Exam Neck Exam: Normal Breast Exam Bilateral: Breast Exam: Normal and Soft Respiratory Exam Respiratory Exam: Normal Cardiovascular Exam Cardiovascular Exam: Normal Abdominal Exam Abdomen: Other (soft, nontender) Fundal Exam Fundus: Below Umbilicus and Firm Rectal Exam Rectal Exam: Normal Exam Perineum: Repair Intact Extremities Exam Extremity Exam: Normal, Full ROM and Warm to Touch Back/Spine/Pelvis Exam Back Exam: Normal Skin Exam Skin Exam: Normal Neurological Exam Neurological Exam: Normal Psychiatric Exam Psychiatric Exam: Normal
[2023-07-22 08:30] VITALS: BP 125/8; PULSE 86; RESP 14; TEMP 37.4
[2023-07-22] MEDS: Docusate Sodium 100 MG CAP PO (08:54)
[2023-07-22] MEDS: Measles, Mumps, & Rubella Vaccine 0.5 ML VIAL SC (08:55)
--- NOTE | 2023-07-22 10:10 | DI.US_ITS ---
Exam(s) US RENAL EXAM: US RENAL CLINICAL HISTORY: r/o hydronephrosis TECHNIQUE: Ultrasound of both kidneys performed using standard protocol. COMPARISON: US POCUS EXAM from 07/19/2023 FINDINGS: RIGHT KIDNEY: Measures 12 cm in length. No cysts evident. Normal cortical thickness and corticomedullary differenti ation .No solid masses No intrarenal calculi nor hydronephrosis. LEFT KIDNEY: Measures 13 cm in length. No cysts evident. Normal cortical thickness and corticomedullary different iaion. No solids masses. No intrarenal calculi nor hydonephrosis. URINARY BLADDER: Prevoid volume is 678 cc. Patient apparently did not feel full this volume in her urinary bladder. Postvoid volume is 278 cc No evidence of bladder mass nor diverticuli. Ureterovesical jets: Both not identified. IMPRESSION: 1. No significant ultrasound findings in the kidneys. No hydronephrosis 2. Large amount of prevoid volume and significantly elevated postvoid volume of 287 cc. No obvious mass in the bladder evident 3. Both ureterovesical jets were not identified. I feel that this is most probably related to the f act that there was a very large amount of fluid in the bladder at the time. DATA REPOSITORY:
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
== END 2023-07-22 12:00 | disposition home or self-care (01) | DRG 806 ==
LOC: BCD 11:24 → OBS 11:24
PROVIDERS: Admitting Provider Advanced Practice Midwife; PCP Nurse Practitioner Family; Visit Provider Advanced Practice Midwife
DX: O12.04 Gestational edema, complicating childbirth (principal); F31.81 Bipolar II disorder; Z37.0 Single live birth; O99.354 Diseases of the nervous system complicating childbirth; O99.824 Streptococcus B carrier state complicating childbirth; O99.344 Other mental disorders complicating childbirth; Z3A.37 37 weeks gestation of pregnancy; G43.909 Migraine, unspecified, not intractable, without status migrainosus; G47.9 Sleep disorder, unspecified; M54.50 Low back pain, unspecified; R35.1 Nocturia; R39.15 Urgency of urination; F41.8 Other specified anxiety disorders; R45.4 Irritability and anger; O42.92 Full-term premature rupture of membranes, unspecified as to length of time between rupture and onset of labor; O75.89 Other specified complications of labor and delivery; O69.3XX0 Labor and delivery complicated by short cord, not applicable or unspecified; O76 Abnormality in fetal heart rate and rhythm complicating labor and delivery; O63.1 Prolonged second stage (of labor); R33.8 Other retention of urine; O90.89 Other complications of the puerperium, not elsewhere classified
CPT/HCPCS: 36415; 76770; 80053; 84112; 85027; 86850; 86900; 86901; 90707; 96372; J0595; J2003; J2540

== ENCOUNTER 2023-08-25 14:28 | Outpatient (REF) | payer BC, SELFPAY | END 2023-08-25 14:29 | disposition home or self-care (01) | LOC: LBN 14:28 | PROVIDERS: PCP Nurse Practitioner Family; Visit Provider Advanced Practice Midwife | DX: N76.2 Acute vulvitis (principal) | CPT/HCPCS: 87086; 87480; 87510; 87660 ==

== ENCOUNTER 2025-01-15 15:20 | Outpatient (REF) | payer SELFPAY | END 2025-01-15 15:21 | disposition home or self-care (01) | LOC: LBN 15:20 | PROVIDERS: PCP Nurse Practitioner Family; Visit Provider Advanced Practice Midwife | DX: N89.8 Other specified noninflammatory disorders of vagina (principal) | CPT/HCPCS: 87480; 87510; 87660 ==

== ENCOUNTER 2025-01-15 15:28 | Outpatient (CLI) | payer SELFPAY ==
[2025-01-15 15:18] LABS: HCT 39.8 % (36.0-46.0); HGB 13.3 g/dL (11.2-15.7); MCH 31.6 pg (27.0-33.0); MCHC 33.4 % (32.0-36.0); MCV 95 fL (80-95); MPV 9.1 fL (8.0-11.0); Platelet Count 318 10^3/uL (130-400); RBC 4.21 10^6/uL (3.93-5.22); RDW 12.0 % (11.7-14.6); RDW-SD 41.6 fL; WBC 7.64 10^3/uL (4.4-10.8)
[2025-01-15 16:41] LABS: HCG Quant, Pregnancy < 3 mIU/mL (1.5-4.2)
== END 2025-01-15 15:29 | disposition home or self-care (01) ==
LOC: LBO 15:29
PROVIDERS: PCP Nurse Practitioner Family; Visit Provider Advanced Practice Midwife
DX: N92.0 Excessive and frequent menstruation with regular cycle (principal)
CPT/HCPCS: 36415; 85027; 84702